=== PATIENT | male | born 1990 | race African-American/Black ===

== ENCOUNTER 2019-04-27 03:24 | Inpatient (IN) | payer BC ==
[2019-04-27] VITALS (7 sets, daily range): BP systolic 126–156; BP diastolic 68–82
[~2019-04-27] VITALS: Ht 175.3 cm; Wt 62.1 kg
[2019-04-27] MEDS ORDERED: ONDANSETRON HCL 4MG/2ML INJ IV STA (03:49)
[2019-04-27] MEDS ORDERED: ACETAMINOPHEN 325MG TABLET PO STA (03:49)
[2019-04-27] MEDS ORDERED: PIPERACILLIN/TAZ 3.375G PREMIX 50 ML IV ONE (04:00)
[2019-04-27] MEDS ORDERED: VANCOMYCIN 1 G PREMIX 200 ML IV ONE (04:00)
[2019-04-27] MEDS ORDERED: SODIUM CHLORIDE 0.9% 1000ML BAG (SEPSIS BOLUS) IV ONE (04:00)
[2019-04-27 04:16] LABS: BG BASE EXCESS -2.2 mmol/L (-2.0-2.0); BG CARBOXYHEMOGLOBIN 2.9 % (0.5-1.5); BG DEOXYHEMOGLOBIN 4.1 % (0.0-5.0); BG FRACTION INSPIRED OXYGEN 36; BG HCO3 ACT 19.9 mmol/L (22.0-26.0); BG METHEMOGLOBIN 0.3 % (0.0-1.5); BG OXYGEN SATURATION 95.8 % (92.0-98.5); BG OXYHEMOGLOBIN 92.7 % (94.0-97.0); BG PCO2 26.7 mmHg (35.0-45.0); BG SAMPLE SITE RIGHT RADIAL; BG TOTAL HEMOGLOBIN 12.1 g/dL (12.0-18.0); BG VENT MODE NASAL CANNULA
[2019-04-27 04:23] LABS: HEMATOCRIT. 34.6 % (42.0-52.0); HEMOGLOBIN. 12.1 g/dL (14.0-18.0); MEAN CORPUSCULAR HEMOGLOBIN 24.4 pg (28.0-32.0); MEAN PLATELET VOLUME 9.7 fl (7.4-10.4); PLATELET 165 x1000/uL (130-400); RED BLOOD CELL COUNT 4.95 mill/uL (4.7-6.1); RED CELL DISTRIBUTION WIDTH 17.4 % (11.6-14.6)
[2019-04-27 04:26] LABS: CHLORIDE 102 mEq/L (98-107)
[2019-04-27 04:30] LABS: ETHANOL BLOOD < 10 mg/dL
[2019-04-27 04:41] LABS: INR 1.3
[2019-04-27 05:12] LABS: NUCLEATED RED BLOOD CELLS 1 /100 WBC
[2019-04-27 05:16] LABS: PLATELET ESTIMATE NORMAL
[2019-04-27 05:47] LABS: CLARITY URINE CLOUDY (CLEAR); COLOR URINE DARK YELLOW (YELLOW); KETONES URINE NEGATIVE (NEGATIVE); LEUKOCYTE ESTERASE URINE 2+ (NEGATIVE); NITRITE URINE POSITIVE (NEGATIVE); OCCULT BLOOD URINE TRACE (NEGATIVE); PH URINE 5.5 (4.5-8.0); PROTEIN URINE TRACE (NEGATIVE); SPECIFIC GRAVITY URINE 1.012 (1.005-1.030)
[2019-04-27 06:11] LABS: *BARBITURATES SCREEN URINE NEGATIVE (NEGATIVE); *BENZODIAZEPINES SCREEN URINE NEGATIVE (NEGATIVE); *COCAINE SCREEN URINE NEGATIVE (NEGATIVE)
[2019-04-27 06:12] LABS: METHADONE URINE SCREEN NEGATIVE (NEGATIVE); OPIATES URINE SCREEN PRESUMTIVE POSITIVE (NEGATIVE); PHENCYCLIDINE URINE SCREEN NEGATIVE (NEGATIVE)
[2019-04-27 06:13] LABS: *AMPHETAMINES SCREEN URINE NEGATIVE (NEGATIVE); CANNABINOID URINE SCREEN NEGATIVE (NEGATIVE)
[2019-04-27] MEDS ORDERED: IOHEXOL-300 100 ML BOTTLE ONE (07:20)
[2019-04-27] MEDS ORDERED: PIPERACILLIN/TAZOBACTAM 3.375 G in DEXT 5% WATER 100 ML IV SCH (08:45)
[2019-04-27] MEDS: SODIUM CHLORIDE 0.9% 1,000 ML IV SCH ×2 (08:45→18:00)
[2019-04-27] MEDS ORDERED: PRED10TA PO (11:58)
[2019-04-27] MEDS: KETOROLAC 30MG/ML VIAL IV PRN ×2 (12:33→22:01)
[2019-04-27] MEDS: ACETAMINOPHEN 325MG TABLET PO PRN (13:54)
[2019-04-27 14:26] LABS: HEPATITIS A AB IGM NEGATIVE (NEGATIVE)
[2019-04-27] MEDS: PIPERACILLIN/TAZOBACTAM 3.375 G in DEXT 5% WATER 100 ML IV SCH ×2 (15:09→21:57)
[2019-04-27] MEDS: VANCOMYCIN 1250MG in DEXTROSE 5% WATER 250ML IV SCH ×2 (16:12→23:35)
[2019-04-27] MEDS: IPRATROPIUM BROMIDE (0.02%) 0.5MG/2.5ML NEB HHN SCH ×2 (16:31→21:43)
[2019-04-27] MEDS: HYDROCODONE/ACETAMINOPHEN 5/325MG TABLET PO PRN (23:36)
[2019-04-28] VITALS (13 sets, daily range): BP systolic 109–140; BP diastolic 64–86
[2019-04-28] MEDS: IPRATROPIUM BROMIDE (0.02%) 0.5MG/2.5ML NEB HHN SCH ×4 (02:10→20:24)
[2019-04-28] MEDS: PIPERACILLIN/TAZOBACTAM 3.375 G in DEXT 5% WATER 100 ML IV SCH ×4 (02:12→20:58)
[2019-04-28] MEDS: HYDROCODONE/ACETAMINOPHEN 5/325MG TABLET PO PRN ×3 (03:28→15:40)
[2019-04-28] MEDS: SODIUM CHLORIDE 0.9% 1,000 ML IV SCH ×3 (05:04→20:58)
[2019-04-28 05:55] LABS: CHLORIDE 109 mEq/L (98-107)
[2019-04-28 06:06] LABS: VANCOMYCIN TROUGH 19.7 ug/mL (5.0-10.0)
[2019-04-28] MEDS: VANCOMYCIN 1250MG in DEXTROSE 5% WATER 250ML IV SCH ×3 (06:18→22:16)
[2019-04-28] MEDS: KETOROLAC 30MG/ML VIAL IV PRN (06:19)
[2019-04-28 06:35] LABS: HEMATOCRIT. 29.8 % (42.0-52.0); MEAN CORPUSCULAR HEMOGLOBIN 23.6 pg (28.0-32.0); MEAN CORPUSCULAR VOLUME 70.4 fL (80.0-94.0); MEAN PLATELET VOLUME 10.6 fl (7.4-10.4); PLATELET 82 x1000/uL (130-400); RED BLOOD CELL COUNT 4.24 mill/uL (4.7-6.1); RED CELL DISTRIBUTION WIDTH 16.9 % (11.6-14.6)
[2019-04-28 12:29] LABS: CLARITY URINE CLOUDY (CLEAR); COLOR URINE DARK YELLOW (YELLOW); KETONES URINE NEGATIVE (NEGATIVE); LEUKOCYTE ESTERASE URINE 1+ (NEGATIVE); NITRITE URINE POSITIVE (NEGATIVE); OCCULT BLOOD URINE NEGATIVE (NEGATIVE); PH URINE 5.5 (4.5-8.0); PROTEIN URINE TRACE (NEGATIVE); SPECIFIC GRAVITY URINE 1.018 (1.005-1.030)
[2019-04-28] MEDS: MORPHINE SULFATE 2 MG/ML CPJ (NOT FOR IM USE) IV PRN ×3 (13:46→22:24)
[2019-04-28] MEDS: IPRATROPIUM BROMIDE (0.02%) 0.5MG/2.5ML NEB HHN PRN (16:46)
[2019-04-28 18:54] LABS: BG BASE EXCESS -1.4 mmol/L (-2.0-2.0); BG BILEVEL POS AIRWAY PRESSURE 15/5; BG CARBOXYHEMOGLOBIN 2.9 % (0.5-1.5); BG FRACTION INSPIRED OXYGEN 50; BG HCO3 ACT 23.4 mmol/L (22.0-26.0); BG METHEMOGLOBIN 0.1 % (0.0-1.5); BG OXYGEN SATURATION 95.9 % (92.0-98.5); BG PCO2 39.3 mmHg (35.0-45.0); BG PH 7.392 (7.350-7.450); BG PO2 86.4 mmHg (75.0-100.0); BG SAMPLE SITE RIGHT RADIAL; BG TOTAL HEMOGLOBIN 10.1 g/dL (12.0-18.0); BG VENT MODE MASK - BIPAP; BG VENT RATE 16 set
[2019-04-28 19:14] LABS: NUCLEATED RED BLOOD CELLS 4 /100 WBC; PLATELET ESTIMATE DECREASED
[2019-04-29] VITALS (17 sets, daily range): BP systolic 121–154; BP diastolic 63–89
[2019-04-29] MEDS ORDERED: AMIKACIN 500MG in SODIUM CHLORIDE 0.9% 100ML IV SCH ×2
[2019-04-29] MEDS: MORPHINE SULFATE 2 MG/ML CPJ (NOT FOR IM USE) IV PRN ×4 (01:28→12:17)
[2019-04-29] MEDS: IPRATROPIUM BROMIDE (0.02%) 0.5MG/2.5ML NEB HHN SCH ×4 (02:18→20:48)
[2019-04-29] MEDS: PIPERACILLIN/TAZOBACTAM 3.375 G in DEXT 5% WATER 100 ML IV SCH ×2 (03:12→08:41)
[2019-04-29 03:57] LABS: BG BASE EXCESS -0.5 mmol/L (-2.0-2.0); BG BILEVEL POS AIRWAY PRESSURE 15/5; BG CARBOXYHEMOGLOBIN 2.5 % (0.5-1.5); BG DEOXYHEMOGLOBIN 2.1 % (0.0-5.0); BG FRACTION INSPIRED OXYGEN 50; BG HCO3 ACT 24.9 mmol/L (22.0-26.0); BG METHEMOGLOBIN 0.2 % (0.0-1.5); BG OXYGEN SATURATION 97.8 % (92.0-98.5); BG OXYHEMOGLOBIN 95.2 % (94.0-97.0); BG PCO2 44.1 mmHg (35.0-45.0); BG PH 7.369 (7.350-7.450); BG PO2 110.3 mmHg (75.0-100.0); BG SAMPLE SITE RIGHT RADIAL; BG TOTAL HEMOGLOBIN 8.7 g/dL (12.0-18.0); BG VENT MODE MASK - BIPAP
[2019-04-29] MEDS: VANCOMYCIN 1250MG in DEXTROSE 5% WATER 250ML IV SCH ×4 (06:15→20:53)
[2019-04-29 07:32] LABS: HEMATOCRIT. 24.7 % (42.0-52.0); HEMOGLOBIN. 8.4 g/dL (14.0-18.0); MEAN CORPUSCULAR HEMOGLOBIN 23.8 pg (28.0-32.0); MEAN CORPUSCULAR VOLUME 70.1 fL (80.0-94.0); MEAN PLATELET VOLUME 9.4 fl (7.4-10.4); PLATELET 53 x1000/uL (130-400); RED BLOOD CELL COUNT 3.53 mill/uL (4.7-6.1); RED CELL DISTRIBUTION WIDTH 17.6 % (11.6-14.6)
[2019-04-29 07:47] LABS: CHLORIDE 109 mEq/L (98-107)
[2019-04-29 11:16] LABS: NUCLEATED RED BLOOD CELLS 20 /100 WBC; PLATELET ESTIMATE DECREASED
[2019-04-29 12:14] LABS: HEPATITIS B SURFACE ANTIGEN NEGATIVE
[2019-04-29] MEDS: MORPHINE SULFATE 4 MG/ML CPJ (NOT FOR IM USE) IV PRN ×3 (14:05→20:57)
[2019-04-29] MEDS: SODIUM CHLORIDE 0.9% 1,000 ML IV SCH ×2 (14:24→21:05)
[2019-04-29] MEDS: CEFTRIAXONE 2 G in DEXT 5% WATER 100 ML IV SCH (15:49)
[2019-04-29 16:15] LABS: BG BASE EXCESS -1.3 mmol/L (-2.0-2.0); BG CARBOXYHEMOGLOBIN 3.5 % (0.5-1.5); BG DEOXYHEMOGLOBIN 1.3 % (0.0-5.0); BG FRACTION INSPIRED OXYGEN 50; BG HCO3 ACT 23.6 mmol/L (22.0-26.0); BG METHEMOGLOBIN 0.3 % (0.0-1.5); BG OXYGEN SATURATION 98.6 % (92.0-98.5); BG OXYHEMOGLOBIN 94.9 % (94.0-97.0); BG PCO2 39.8 mmHg (35.0-45.0); BG PO2 137.3 mmHg (75.0-100.0); BG SAMPLE SITE RIGHT RADIAL; BG VENT MODE MASK - BIPAP; BG VENT RATE 16 set
[2019-04-29] MEDS: PHENOL/SODIUM PHENOLATE 1.4% SRPAY 177ML MM PRN (16:45)
[2019-04-29] MEDS: ACETAMINOPHEN 325MG TABLET PO PRN (16:45)
[2019-04-29 23:30] LABS: BG BASE EXCESS -1.1 mmol/L (-2.0-2.0); BG CARBOXYHEMOGLOBIN 4.1 % (0.5-1.5); BG DEOXYHEMOGLOBIN 1.2 % (0.0-5.0); BG FRACTION INSPIRED OXYGEN 50; BG METHEMOGLOBIN 0.4 % (0.0-1.5); BG OXYGEN SATURATION 98.7 % (92.0-98.5); BG OXYHEMOGLOBIN 94.3 % (94.0-97.0); BG PCO2 42.2 mmHg (35.0-45.0); BG PH 7.373 (7.350-7.450); BG PO2 122.6 mmHg (75.0-100.0); BG SAMPLE SITE RIGHT RADIAL; BG TOTAL HEMOGLOBIN 7.1 g/dL (12.0-18.0); BG VENT MODE MASK - BIPAP; BG VENT RATE 16 set
[2019-04-30] VITALS (34 sets, daily range): BP systolic 95–187; BP diastolic 45–108
[2019-04-30] MEDS: MORPHINE SULFATE 4 MG/ML CPJ (NOT FOR IM USE) IV PRN ×3 (01:02→10:37)
[2019-04-30] MEDS: IPRATROPIUM BROMIDE (0.02%) 0.5MG/2.5ML NEB HHN SCH ×4 (02:09→20:37)
[2019-04-30 05:11] LABS: HIV SCREEN 4G Non Reactive (Non Reactive)
[2019-04-30] MEDS: VANCOMYCIN 1250MG in DEXTROSE 5% WATER 250ML IV SCH ×3 (05:29→22:15)
[2019-04-30] MEDS: SODIUM CHLORIDE 0.9% 1,000 ML IV SCH ×3 (05:31→20:50)
[2019-04-30 06:24] LABS: CHLORIDE 109 mEq/L (98-107); FOLIC ACID (FOLATE) SERUM 10.8 ng/mL (>5.38)
[2019-04-30 06:31] LABS: PHOSPHORUS 2.6 mg/dL (2.5-4.9)
[2019-04-30 06:46] LABS: HEMATOCRIT. 21.5 % (42.0-52.0); HEMOGLOBIN. 7.4 g/dL (14.0-18.0); MEAN CORPUSCULAR VOLUME 69.5 fL (80.0-94.0); RED BLOOD CELL COUNT 3.09 mill/uL (4.7-6.1); RED CELL DISTRIBUTION WIDTH 18.4 % (11.6-14.6)
[2019-04-30 09:28] LABS: BG BASE EXCESS 1.1 mmol/L (-2.0-2.0); BG CARBOXYHEMOGLOBIN 3.6 % (0.5-1.5); BG DEOXYHEMOGLOBIN 1.1 % (0.0-5.0); BG HCO3 ACT 26.8 mmol/L (22.0-26.0); BG METHEMOGLOBIN 0.4 % (0.0-1.5); BG OXYGEN SATURATION 98.9 % (92.0-98.5); BG OXYHEMOGLOBIN 94.9 % (94.0-97.0); BG PCO2 48.7 mmHg (35.0-45.0); BG PH 7.358 (7.350-7.450); BG PO2 136.1 mmHg (75.0-100.0); BG SAMPLE SITE RIGHT RADIAL; BG TOTAL HEMOGLOBIN 7.2 g/dL (12.0-18.0); BG VENT MODE MASK - BIPAP; BG VENT RATE 16 set
[2019-04-30 10:20] LABS: PLATELET 51 x1000/uL (130-400)
[2019-04-30 10:25] LABS: NUCLEATED RED BLOOD CELLS 32 /100 WBC
[2019-04-30 10:26] LABS: PLATELET ESTIMATE DECREASED
[2019-04-30] MEDS: KETOROLAC 30MG/ML VIAL IV PRN (11:33)
[2019-04-30] MEDS: HYDROMORPHONE HCL/PF 2MG/ML CPJ IV PRN ×2 (12:56→17:42)
[2019-04-30] MEDS: DIPHENHYDRAMINE 50MG/ML VIAL IV PRN (13:53)
[2019-04-30] MEDS: CEFTRIAXONE 2 G in DEXT 5% WATER 100 ML IV SCH (16:02)
[2019-04-30 17:11] LABS: ANTI-NUCLEAR ANTIBODIES DIRECT Negative (Negative)
[2019-04-30] MEDS ORDERED: SUCCINYLCHOLINE CHLORIDE 200MG/10ML IV ONE (17:25)
[2019-04-30] MEDS ORDERED: ETOMIDATE 2MG/ML 10ML VIAL IV ONE (17:25)
[2019-04-30 17:43] LABS: CREATINE KINASE 75 IU/L (39-308)
[2019-04-30 18:13] LABS: BG BASE EXCESS -0.4 mmol/L (-2.0-2.0); BG CARBOXYHEMOGLOBIN 3.4 % (0.5-1.5); BG DEOXYHEMOGLOBIN 0.2 % (0.0-5.0); BG HCO3 ACT 25.4 mmol/L (22.0-26.0); BG METHEMOGLOBIN 0.7 % (0.0-1.5); BG OXYGEN SATURATION 99.8 % (92.0-98.5); BG OXYHEMOGLOBIN 95.7 % (94.0-97.0); BG PCO2 48.1 mmHg (35.0-45.0); BG PH 7.341 (7.350-7.450); BG PO2 284.6 mmHg (75.0-100.0); BG SAMPLE SITE RIGHT RADIAL; BG TOTAL HEMOGLOBIN 7.7 g/dL (12.0-18.0); BG VENT MODE MASK - BIPAP; BG VENT RATE 16 set
[2019-04-30] MEDS ORDERED: PROPOFOL 10MG/ML 100ML 100 ML IV PRN (18:45)
[2019-04-30 19:12] LABS: BG BASE EXCESS -0.7 mmol/L (-2.0-2.0); BG CARBOXYHEMOGLOBIN 3.8 % (0.5-1.5); BG FRACTION INSPIRED OXYGEN 100; BG HCO3 ACT 24.1 mmol/L (22.0-26.0); BG METHEMOGLOBIN 0.8 % (0.0-1.5); BG OXYHEMOGLOBIN 94.4 % (94.0-97.0); BG PH 7.398 (7.350-7.450); BG PO2 149.6 mmHg (75.0-100.0); BG SAMPLE SITE RIGHT RADIAL; BG TIDAL VOLUME(mL) 500 mL; BG TOTAL HEMOGLOBIN 6.5 g/dL (12.0-18.0); BG VENT MODE VENT - A/C; BG VENT RATE 12 set
[2019-04-30] MEDS: MORPHINE SULFATE 2 MG/ML CPJ (NOT FOR IM USE) IV PRN (19:49)
[2019-04-30] MEDS: FENTANYL CITRATE/PF 500 MCG in SODIUM CHLORIDE 0.9% 40 ML IV PRN (20:22)
[2019-04-30] MEDS: ACETAMINOPHEN 325MG TABLET PO PRN (20:31)
[2019-04-30] MEDS: PROPOFOL 10MG/ML 100ML 100 ML IV PRN ×2 (20:44→23:59)
[2019-05-01] VITALS (100 sets, daily range): BP systolic 96–129; BP diastolic 45–77
[2019-05-01] MEDS: IPRATROPIUM BROMIDE (0.02%) 0.5MG/2.5ML NEB HHN SCH ×4 (01:49→20:38)
[2019-05-01] MEDS: FENTANYL CITRATE/PF 500 MCG in SODIUM CHLORIDE 0.9% 40 ML IV PRN ×5 (02:14→23:36)
[2019-05-01] MEDS: PROPOFOL 10MG/ML 100ML 100 ML IV PRN ×2 (03:32→07:24)
[2019-05-01] MEDS: ACETAMINOPHEN 325MG TABLET PO PRN ×2 (04:42→15:16)
[2019-05-01] MEDS: VANCOMYCIN 1250MG in DEXTROSE 5% WATER 250ML IV SCH (05:09)
[2019-05-01 05:38] LABS: MEAN CORPUSCULAR HEMOGLOBIN 23.7 pg (28.0-32.0); MEAN CORPUSCULAR VOLUME 69.9 fL (80.0-94.0); RED BLOOD CELL COUNT 2.69 mill/uL (4.7-6.1); RED CELL DISTRIBUTION WIDTH 18.7 % (11.6-14.6)
[2019-05-01 05:42] LABS: CHLORIDE 108 mEq/L (98-107)
[2019-05-01 05:58] LABS: VANCOMYCIN TROUGH 26.5 ug/mL (5.0-10.0)
[2019-05-01 06:31] LABS: HEMOGLOBIN. 6.4 g/dL (14.0-18.0)
[2019-05-01 06:32] LABS: HEMATOCRIT. 18.8 % (42.0-52.0)
[2019-05-01 07:59] LABS: BG BASE EXCESS -0.8 mmol/L (-2.0-2.0); BG CARBOXYHEMOGLOBIN 2.7 % (0.5-1.5); BG DEOXYHEMOGLOBIN 3.1 % (0.0-5.0); BG FRACTION INSPIRED OXYGEN 100; BG HCO3 ACT 23.4 mmol/L (22.0-26.0); BG METHEMOGLOBIN 0.7 % (0.0-1.5); BG OXYGEN SATURATION 96.8 % (92.0-98.5); BG OXYHEMOGLOBIN 93.5 % (94.0-97.0); BG PCO2 35.5 mmHg (35.0-45.0); BG PH 7.437 (7.350-7.450); BG PO2 92.1 mmHg (75.0-100.0); BG SAMPLE SITE RIGHT RADIAL; BG TIDAL VOLUME(mL) 500 mL; BG TOTAL HEMOGLOBIN 5.2 g/dL (12.0-18.0); BG VENT MODE VENT - A/C; BG VENT RATE 12 set
[2019-05-01 09:46] LABS: NUCLEATED RED BLOOD CELLS 72 /100 WBC; PLATELET ESTIMATE DECREASED
[2019-05-01] MEDS: MIDAZOLAM HCL 100 MG in DEXT 5% WATER 80 ML IV PRN ×2 (09:55→20:29)
[2019-05-01] MEDS: SODIUM CHLORIDE 0.9% 1,000 ML IV SCH (12:45)
[2019-05-01 14:17] LABS: MEAN PLATELET VOLUME 10.9 fl (7.4-10.4); PLATELET 60 x1000/uL (130-400)
[2019-05-01] MEDS: CEFTRIAXONE 2 G in DEXTROSE 5% WATER 50 ML IV SCH (15:13)
[2019-05-01 15:14] LABS: ANTI-MYELOPEROXIDASE AB < 9.0 U/mL (0.0-9.0); ANTI-PROTEINASE 3 ABS < 3.5 U/mL (0.0-3.5)
[2019-05-01] MEDS ORDERED: LEVOFLOXACIN 750MG PREMIX 150 ML IV SCH (16:45)
[2019-05-01 16:50] LABS: HEMOGLOBIN 9.2 g/dL (14.0-18.0)
[2019-05-01] MEDS: VANCOMYCIN 1500MG in DEXTROSE 5% WATER 250ML IV SCH (18:24)
[2019-05-01] MEDS: LEVOFLOXACIN 750MG PREMIX 150 ML IV SCH (20:36)
[2019-05-02] VITALS (90 sets, daily range): BP systolic 92–147; BP diastolic 45–86
[2019-05-02] MEDS: SODIUM CHLORIDE 0.9% 1,000 ML IV SCH ×2 (00:17→09:34)
[2019-05-02] MEDS: IPRATROPIUM BROMIDE (0.02%) 0.5MG/2.5ML NEB HHN SCH ×4 (04:50→20:53)
[2019-05-02] MEDS: FENTANYL CITRATE/PF 500 MCG in SODIUM CHLORIDE 0.9% 40 ML IV PRN ×4 (05:24→22:03)
[2019-05-02] MEDS: VANCOMYCIN 1500MG in DEXTROSE 5% WATER 250ML IV SCH (05:28)
[2019-05-02 05:45] LABS: HEMATOCRIT. 27.9 % (42.0-52.0); HEMOGLOBIN. 9.3 g/dL (14.0-18.0); MEAN CORPUSCULAR HEMOGLOBIN 25.3 pg (28.0-32.0); MEAN CORPUSCULAR VOLUME 75.8 fL (80.0-94.0); RED BLOOD CELL COUNT 3.67 mill/uL (4.7-6.1); RED CELL DISTRIBUTION WIDTH 22.9 % (11.6-14.6)
[2019-05-02 06:17] LABS: CHLORIDE 116 mEq/L (98-107)
[2019-05-02 08:12] LABS: BG BASE EXCESS -3.8 mmol/L (-2.0-2.0); BG CARBOXYHEMOGLOBIN 0.7 % (0.5-1.5); BG DEOXYHEMOGLOBIN 0.9 % (0.0-5.0); BG FRACTION INSPIRED OXYGEN 100; BG METHEMOGLOBIN 0.3 % (0.0-1.5); BG OXYGEN SATURATION 99.1 % (92.0-98.5); BG OXYHEMOGLOBIN 98.1 % (94.0-97.0); BG PH 7.372 (7.350-7.450); BG PO2 159.7 mmHg (75.0-100.0); BG SAMPLE SITE RIGHT RADIAL; BG TIDAL VOLUME(mL) 500 mL; BG TOTAL HEMOGLOBIN 8.2 g/dL (12.0-18.0); BG VENT MODE VENT - A/C; BG VENT RATE 12 set
[2019-05-02 08:41] LABS: NUCLEATED RED BLOOD CELLS 60 /100 WBC
[2019-05-02 08:43] LABS: PLATELET ESTIMATE SLIGHTLY DECREASED
[2019-05-02 08:44] LABS: PLATELET 84 x1000/uL (130-400)
[2019-05-02] MEDS ORDERED: DIATR MEGLU/DIATRIZOATE SOLN 30ML PO SCH (09:00)
[2019-05-02] MEDS ORDERED: SODIUM CHLORIDE 0.9% 500 ML IV ONE (09:46)
[2019-05-02] MEDS: MIDAZOLAM HCL 100 MG in DEXT 5% WATER 80 ML IV PRN ×2 (11:48→23:35)
[2019-05-02] MEDS: IPRATROPIUM BROMIDE (0.02%) 0.5MG/2.5ML NEB HHN PRN ×2 (12:17→16:08)
[2019-05-02] MEDS: MORPHINE SULFATE 2 MG/ML CPJ (NOT FOR IM USE) IV PRN (13:07)
[2019-05-02 13:14] LABS: ATYPICAL P-ANCA <1:20 titer (Neg:<1:20); CYTOPLASMIC C-ANCA <1:20 titer (Neg:<1:20); PERINUCLEAR P-ANCA <1:20 titer (Neg:<1:20)
[2019-05-02] MEDS: ACETAMINOPHEN 325MG TABLET PO PRN (13:42)
[2019-05-02] MEDS ORDERED: BUSPIRONE HCL 10MG TABLET PO PRN (14:15)
[2019-05-02] MEDS: SODIUM CHLORIDE 0.45% 1,000 ML IV SCH (14:47)
[2019-05-02] MEDS ORDERED: MEPERIDINE HCL/PF 25MG/ML CPJ IV NR (15:00)
[2019-05-02] MEDS: CEFTRIAXONE 2 G in DEXTROSE 5% WATER 50 ML IV SCH (15:59)
[2019-05-02] MEDS: LEVOFLOXACIN 750MG PREMIX 150 ML IV SCH (20:19)
[2019-05-03] VITALS (82 sets, daily range): BP systolic 105–132; BP diastolic 49–77
[2019-05-03] MEDS: SODIUM CHLORIDE 0.45% 1,000 ML IV SCH (00:21)
[2019-05-03] MEDS: IPRATROPIUM BROMIDE (0.02%) 0.5MG/2.5ML NEB HHN SCH ×4 (02:20→21:00)
[2019-05-03] MEDS: FENTANYL CITRATE/PF 500 MCG in SODIUM CHLORIDE 0.9% 40 ML IV PRN ×4 (02:57→19:35)
[2019-05-03 05:42] LABS: HEMOGLOBIN. 8.4 g/dL (14.0-18.0); MEAN CORPUSCULAR HEMOGLOBIN 25.3 pg (28.0-32.0); MEAN CORPUSCULAR VOLUME 75.2 fL (80.0-94.0); RED BLOOD CELL COUNT 3.32 mill/uL (4.7-6.1); RED CELL DISTRIBUTION WIDTH 22.8 % (11.6-14.6)
[2019-05-03 05:48] LABS: INR 1.6
[2019-05-03 05:51] LABS: CHLORIDE 121 mEq/L (98-107)
[2019-05-03 06:04] LABS: CREATINE KINASE 135 IU/L (39-308)
[2019-05-03 06:08] LABS: CREATINE KINASE MB FRACTION < 1.0 ng/mL (0.5-3.6)
[2019-05-03 07:54] LABS: BG BASE EXCESS -5.5 mmol/L (-2.0-2.0); BG CARBOXYHEMOGLOBIN 1.4 % (0.5-1.5); BG DEOXYHEMOGLOBIN 5.9 % (0.0-5.0); BG FRACTION INSPIRED OXYGEN 50; BG HCO3 ACT 19.2 mmol/L (22.0-26.0); BG METHEMOGLOBIN 0.4 % (0.0-1.5); BG OXYHEMOGLOBIN 92.3 % (94.0-97.0); BG PCO2 33.9 mmHg (35.0-45.0); BG PH 7.371 (7.350-7.450); BG SAMPLE SITE RIGHT RADIAL; BG TIDAL VOLUME(mL) 500 mL; BG TOTAL HEMOGLOBIN 8.2 g/dL (12.0-18.0); BG VENT MODE VENT - A/C; BG VENT RATE 12 set
[2019-05-03] MEDS ORDERED: LIDOCAINE HCL 1% 20ML VIAL (Pyxis) INJ ONE (07:55)
[2019-05-03 08:19] LABS: NUCLEATED RED BLOOD CELLS 38 /100 WBC
[2019-05-03 08:21] LABS: PLATELET ESTIMATE SLIGHTLY DECREASED
[2019-05-03 08:26] LABS: MEAN PLATELET VOLUME 12.5 fl (7.4-10.4); PLATELET 103 x1000/uL (130-400)
[2019-05-03] MEDS: MIDAZOLAM HCL 100 MG in DEXT 5% WATER 80 ML IV PRN ×2 (09:23→17:49)
[2019-05-03 10:34] LABS: CREATINE KINASE 110 IU/L (39-308)
[2019-05-03] MEDS: DIPHENHYDRAMINE 50MG/ML VIAL IV PRN ×2 (11:19→16:15)
[2019-05-03] MEDS: DEXTROSE 5% WATER 1,000 ML IV SCH ×2 (11:19→20:41)
[2019-05-03] MEDS ORDERED: DIATR MEGLU/DIATRIZOATE SOLN 30ML PO NR (12:00)
[2019-05-03] MEDS: ACETYLCYSTEINE 100MG/ML 10% VIAL 4ML INH SCH (13:39)
[2019-05-03] MEDS: CEFTRIAXONE 2 G in DEXTROSE 5% WATER 50 ML IV SCH (16:14)
[2019-05-03] MEDS: MORPHINE SULFATE 2 MG/ML CPJ (NOT FOR IM USE) IV PRN (16:16)
[2019-05-03] MEDS: ACETAMINOPHEN 325MG TABLET PO PRN (17:33)
[2019-05-03] MEDS: LEVOFLOXACIN 750MG PREMIX 150 ML IV SCH (20:41)
[2019-05-04] VITALS (95 sets, daily range): BP systolic 105–140; BP diastolic 56–81
[2019-05-04] MEDS: FENTANYL CITRATE/PF 500 MCG in SODIUM CHLORIDE 0.9% 40 ML IV PRN ×5 (00:28→20:54)
[2019-05-04] MEDS: IPRATROPIUM BROMIDE (0.02%) 0.5MG/2.5ML NEB HHN PRN (00:54)
[2019-05-04] MEDS: ACETYLCYSTEINE 100MG/ML 10% VIAL 4ML INH SCH ×3 (00:54→15:52)
[2019-05-04] MEDS: IPRATROPIUM BROMIDE (0.02%) 0.5MG/2.5ML NEB HHN SCH ×4 (02:00→20:02)
[2019-05-04 05:22] LABS: HEMATOCRIT. 24.5 % (42.0-52.0); MEAN CORPUSCULAR HEMOGLOBIN 24.8 pg (28.0-32.0); MEAN CORPUSCULAR VOLUME 75.7 fL (80.0-94.0); MEAN PLATELET VOLUME 11.2 fl (7.4-10.4); PLATELET 142 x1000/uL (130-400); RED BLOOD CELL COUNT 3.24 mill/uL (4.7-6.1); RED CELL DISTRIBUTION WIDTH 24.6 % (11.6-14.6)
[2019-05-04] MEDS: MIDAZOLAM HCL 100 MG in DEXT 5% WATER 80 ML IV PRN ×2 (05:24→16:03)
[2019-05-04 05:36] LABS: INR 1.8
[2019-05-04 07:34] LABS: NUCLEATED RED BLOOD CELLS 44 /100 WBC
[2019-05-04 07:35] LABS: PLATELET ESTIMATE NORMAL
[2019-05-04 08:26] LABS: BG BASE EXCESS -6.5 mmol/L (-2.0-2.0); BG CARBOXYHEMOGLOBIN 0.5 % (0.5-1.5); BG DEOXYHEMOGLOBIN 3.5 % (0.0-5.0); BG FRACTION INSPIRED OXYGEN 50; BG HCO3 ACT 18.1 mmol/L (22.0-26.0); BG METHEMOGLOBIN 0.6 % (0.0-1.5); BG OXYGEN SATURATION 96.5 % (92.0-98.5); BG OXYHEMOGLOBIN 95.4 % (94.0-97.0); BG PCO2 32.7 mmHg (35.0-45.0); BG PH 7.362 (7.350-7.450); BG PO2 100.9 mmHg (75.0-100.0); BG SAMPLE SITE RIGHT RADIAL; BG TIDAL VOLUME(mL) 500 mL; BG TOTAL HEMOGLOBIN 8.9 g/dL (12.0-18.0); BG VENT MODE VENT - A/C; BG VENT RATE 12 set
[2019-05-04] MEDS: DIPHENHYDRAMINE 50MG/ML VIAL IV PRN (10:10)
[2019-05-04] MEDS ORDERED: BISACODYL 10MG SUPP PR NR (13:30)
[2019-05-04] MEDS: CEFTRIAXONE 2 G in DEXTROSE 5% WATER 50 ML IV SCH (17:10)
[2019-05-04 17:45] LABS: INR 1.8; PROTHROMBIN TIME 18.1 sec (9.6-11.0)
[2019-05-04] MEDS: DEXTROSE 5% WATER 1,000 ML IV SCH (20:20)
[2019-05-04] MEDS: LEVOFLOXACIN 750MG PREMIX 150 ML IV SCH (20:20)
[2019-05-05] VITALS (109 sets, daily range): BP systolic 107–134; BP diastolic 49–75
[2019-05-05] MEDS: IPRATROPIUM BROMIDE (0.02%) 0.5MG/2.5ML NEB HHN SCH ×4 (00:11→20:28)
[2019-05-05] MEDS: ACETYLCYSTEINE 100MG/ML 10% VIAL 4ML INH SCH ×3 (00:11→15:24)
[2019-05-05] MEDS: MIDAZOLAM HCL 100 MG in DEXT 5% WATER 80 ML IV PRN ×3 (01:01→22:24)
[2019-05-05] MEDS: FENTANYL CITRATE/PF 500 MCG in SODIUM CHLORIDE 0.9% 40 ML IV PRN ×5 (02:27→23:57)
[2019-05-05 02:41] LABS: INR 1.8; PROTHROMBIN TIME 18.2 sec (9.6-11.0)
[2019-05-05 08:02] LABS: MEAN CORPUSCULAR HEMOGLOBIN 24.6 pg (28.0-32.0); PLATELET 280 x1000/uL (130-400); RED BLOOD CELL COUNT 2.71 mill/uL (4.7-6.1); RED CELL DISTRIBUTION WIDTH 25.5 % (11.6-14.6)
[2019-05-05 08:10] LABS: HEMOGLOBIN. 6.7 g/dL (14.0-18.0)
[2019-05-05 08:39] LABS: BG BASE EXCESS -4.1 mmol/L (-2.0-2.0); BG CARBOXYHEMOGLOBIN 1.5 % (0.5-1.5); BG DEOXYHEMOGLOBIN 1.4 % (0.0-5.0); BG FRACTION INSPIRED OXYGEN 50; BG HCO3 ACT 20.8 mmol/L (22.0-26.0); BG METHEMOGLOBIN 0.3 % (0.0-1.5); BG OXYGEN SATURATION 98.6 % (92.0-98.5); BG OXYHEMOGLOBIN 96.8 % (94.0-97.0); BG PCO2 36.4 mmHg (35.0-45.0); BG PH 7.374 (7.350-7.450); BG PO2 139.9 mmHg (75.0-100.0); BG SAMPLE SITE RIGHT RADIAL; BG TIDAL VOLUME(mL) 500 mL; BG TOTAL HEMOGLOBIN 6.9 g/dL (12.0-18.0); BG VENT MODE VENT - A/C; BG VENT RATE 12 set
[2019-05-05 09:07] LABS: NUCLEATED RED BLOOD CELLS 20 /100 WBC
[2019-05-05 09:10] LABS: PLATELET ESTIMATE NORMAL
[2019-05-05] MEDS ORDERED: PHYTONADIONE 10MG/ML AMP SUBCUT NR (09:45)
[2019-05-05 10:22] LABS: INR 1.7; PROTHROMBIN TIME 17.1 sec (9.6-11.0)
[2019-05-05] MEDS ORDERED: LIDOCAINE HCL 1% 20ML VIAL (Pyxis) INJ ONE (10:23)
[2019-05-05] MEDS ORDERED: SODIUM BICARBONATE 4% (2.4MEQ) 5ML VIAL IV ONE (10:23)
[2019-05-05] MEDS ORDERED: SODIUM POLYSTYRENE SULFONATE 15 G/60 ML BOT PR NR (10:30)
[2019-05-05] MEDS: DEXTROSE 5% WATER 1,000 ML IV SCH ×2 (13:05)
[2019-05-05] MEDS: CEFTRIAXONE 2 G in DEXTROSE 5% WATER 50 ML IV SCH (16:27)
[2019-05-05] MEDS: LEVOFLOXACIN 500MG PREMIX 100 ML IV SCH (18:11)
[2019-05-05 21:44] LABS: HEMATOCRIT 26.4 % (42.0-52.0); HEMOGLOBIN 8.9 g/dL (14.0-18.0)
[2019-05-06] VITALS (95 sets, daily range): BP systolic 99–156; BP diastolic 53–114
[2019-05-06] MEDS: IPRATROPIUM BROMIDE (0.02%) 0.5MG/2.5ML NEB HHN SCH ×4 (01:58→20:27)
[2019-05-06] MEDS: ACETYLCYSTEINE 100MG/ML 10% VIAL 4ML INH SCH ×3 (01:59→13:32)
[2019-05-06] MEDS: DEXTROSE 5% WATER 1,000 ML IV SCH ×2 (03:12→16:23)
[2019-05-06] MEDS: FENTANYL CITRATE/PF 500 MCG in SODIUM CHLORIDE 0.9% 40 ML IV PRN ×5 (04:47→21:48)
[2019-05-06 04:50] LABS: HEMATOCRIT. 28.2 % (42.0-52.0); HEMOGLOBIN. 9.4 g/dL (14.0-18.0); MEAN CORPUSCULAR HEMOGLOBIN 25.7 pg (28.0-32.0); MEAN CORPUSCULAR VOLUME 76.8 fL (80.0-94.0); MEAN PLATELET VOLUME 10.8 fl (7.4-10.4); PLATELET 271 x1000/uL (130-400); RED BLOOD CELL COUNT 3.67 mill/uL (4.7-6.1); RED CELL DISTRIBUTION WIDTH 23.8 % (11.6-14.6)
[2019-05-06 04:57] LABS: INR 1.3
[2019-05-06 07:35] LABS: NUCLEATED RED BLOOD CELLS 16 /100 WBC
[2019-05-06 07:36] LABS: PLATELET ESTIMATE NORMAL
[2019-05-06] MEDS: MIDAZOLAM HCL 100 MG in DEXT 5% WATER 80 ML IV PRN ×2 (08:42→18:47)
[2019-05-06 12:36] LABS: BG BASE EXCESS -2.9 mmol/L (-2.0-2.0); BG CARBOXYHEMOGLOBIN 0.3 % (0.5-1.5); BG DEOXYHEMOGLOBIN 8.1 % (0.0-5.0); BG FRACTION INSPIRED OXYGEN 50; BG HCO3 ACT 22.1 mmol/L (22.0-26.0); BG METHEMOGLOBIN 0.3 % (0.0-1.5); BG OXYGEN SATURATION 91.9 % (92.0-98.5); BG OXYHEMOGLOBIN 91.3 % (94.0-97.0); BG PCO2 39.1 mmHg (35.0-45.0); BG PO2 66.4 mmHg (75.0-100.0); BG SAMPLE SITE RIGHT RADIAL; BG TIDAL VOLUME(mL) 500 mL; BG TOTAL HEMOGLOBIN 10.2 g/dL (12.0-18.0); BG VENT MODE VENT - A/C; BG VENT RATE 12 set
[2019-05-06] MEDS ORDERED: MIDAZOLAM HCL 50 MG in DEXTROSE 5% WATER 40 ML IV PRN (14:00)
[2019-05-06] MEDS: CEFTRIAXONE 2 G in DEXTROSE 5% WATER 50 ML IV SCH (14:22)
[2019-05-06] MEDS: LEVOFLOXACIN 500MG PREMIX 100 ML IV SCH (17:37)
[2019-05-06 18:05] LABS: BG BASE EXCESS -0.4 mmol/L (-2.0-2.0); BG CARBOXYHEMOGLOBIN 0.3 % (0.5-1.5); BG DEOXYHEMOGLOBIN 1.3 % (0.0-5.0); BG FRACTION INSPIRED OXYGEN 60; BG HCO3 ACT 24.6 mmol/L (22.0-26.0); BG METHEMOGLOBIN 0.3 % (0.0-1.5); BG OXYGEN SATURATION 98.7 % (92.0-98.5); BG OXYHEMOGLOBIN 98.1 % (94.0-97.0); BG PCO2 41.9 mmHg (35.0-45.0); BG PH 7.387 (7.350-7.450); BG PO2 190.6 mmHg (75.0-100.0); BG SAMPLE SITE LEFT RADIAL; BG TIDAL VOLUME(mL) 550 mL; BG TOTAL HEMOGLOBIN 11.4 g/dL (12.0-18.0); BG VENT MODE VENT - A/C; BG VENT RATE 12 set
[2019-05-06] MEDS ORDERED: HALOPERIDOL LACTATE 5MG/ML VIAL IM NR (18:15)
[2019-05-06] MEDS ORDERED: BENZTROPINE MESYLATE 1MG/1ML 2ML AMP IM NR (18:30)
[2019-05-07] VITALS (91 sets, daily range): BP systolic 99–147; BP diastolic 51–79
[2019-05-07] MEDS: ACETAMINOPHEN 325MG TABLET PO PRN ×2 (00:08→09:41)
[2019-05-07] MEDS: DEXTROSE 5% WATER 1,000 ML IV SCH ×3 (01:07→20:41)
[2019-05-07] MEDS: IPRATROPIUM BROMIDE (0.02%) 0.5MG/2.5ML NEB HHN SCH ×4 (01:11→20:56)
[2019-05-07] MEDS: ACETYLCYSTEINE 100MG/ML 10% VIAL 4ML INH SCH ×4 (01:12→20:55)
[2019-05-07] MEDS: FENTANYL CITRATE/PF 500 MCG in SODIUM CHLORIDE 0.9% 40 ML IV PRN ×4 (03:09→20:11)
[2019-05-07] MEDS: MIDAZOLAM HCL 100 MG in DEXT 5% WATER 80 ML IV PRN ×2 (05:36→16:21)
[2019-05-07 06:13] LABS: HEMATOCRIT. 28.1 % (42.0-52.0); HEMOGLOBIN. 9.3 g/dL (14.0-18.0); MEAN CORPUSCULAR HEMOGLOBIN 25.4 pg (28.0-32.0); MEAN CORPUSCULAR VOLUME 77.1 fL (80.0-94.0); MEAN PLATELET VOLUME 11.2 fl (7.4-10.4); PLATELET 353 x1000/uL (130-400); RED BLOOD CELL COUNT 3.64 mill/uL (4.7-6.1); RED CELL DISTRIBUTION WIDTH 24.8 % (11.6-14.6)
[2019-05-07 06:21] LABS: INR 1.3; PROTHROMBIN TIME 12.7 sec (9.6-11.0)
[2019-05-07 06:27] LABS: PHOSPHORUS 3.7 mg/dL (2.5-4.9)
[2019-05-07 07:13] LABS: NUCLEATED RED BLOOD CELLS 5 /100 WBC
[2019-05-07 07:14] LABS: PLATELET ESTIMATE NORMAL
[2019-05-07] MEDS: BENZTROPINE MESYLATE 1MG/1ML 2ML AMP IM SCH (08:19)
[2019-05-07] MEDS: HALOPERIDOL LACTATE 5MG/ML VIAL IM SCH ×2 (08:19→20:41)
[2019-05-07 08:46] LABS: BG BASE EXCESS 1.9 mmol/L (-2.0-2.0); BG CARBOXYHEMOGLOBIN 0.7 % (0.5-1.5); BG DEOXYHEMOGLOBIN 1.4 % (0.0-5.0); BG FRACTION INSPIRED OXYGEN 60; BG HCO3 ACT 27.4 mmol/L (22.0-26.0); BG METHEMOGLOBIN 0.3 % (0.0-1.5); BG OXYGEN SATURATION 98.6 % (92.0-98.5); BG OXYHEMOGLOBIN 97.6 % (94.0-97.0); BG PCO2 46.2 mmHg (35.0-45.0); BG PH 7.391 (7.350-7.450); BG PO2 149.1 mmHg (75.0-100.0); BG SAMPLE SITE RIGHT RADIAL; BG TIDAL VOLUME(mL) 500 mL; BG VENT MODE VENT - A/C; BG VENT RATE 12 set
[2019-05-07] MEDS ORDERED: VECURONIUM BROMIDE 10 MG in DEXT 5% WATER 100 ML IV PRN (09:00)
[2019-05-07] MEDS ORDERED: MEPERIDINE HCL/PF 25MG/ML CPJ IM PRN (09:45)
[2019-05-07] MEDS: METHADONE HCL 10MG TABLET NG SCH (10:05)
[2019-05-07] MEDS: LORAZEPAM 2MG/ML CPJ IV PRN ×2 (10:19→16:10)
[2019-05-07] MEDS: HYDROCORTISONE SOD SUCCINATE 100 MG/2 ML VIAL IV SCH ×2 (11:56→18:33)
[2019-05-07] MEDS: CEFTRIAXONE 2 G in DEXTROSE 5% WATER 50 ML IV SCH (14:28)
[2019-05-07] MEDS: IPRATROPIUM BROMIDE (0.02%) 0.5MG/2.5ML NEB HHN PRN (17:29)
[2019-05-07] MEDS: LEVOFLOXACIN 500MG PREMIX 100 ML IV SCH (18:33)
[2019-05-08] VITALS (88 sets, daily range): BP systolic 101–124; BP diastolic 50–67
[2019-05-08] MEDS: HYDROCORTISONE SOD SUCCINATE 100 MG/2 ML VIAL IV SCH ×3 (01:54→17:40)
[2019-05-08] MEDS: FENTANYL CITRATE/PF 500 MCG in SODIUM CHLORIDE 0.9% 40 ML IV PRN ×4 (01:55→19:10)
[2019-05-08] MEDS: IPRATROPIUM BROMIDE (0.02%) 0.5MG/2.5ML NEB HHN SCH ×4 (02:06→19:58)
[2019-05-08] MEDS: MIDAZOLAM HCL 100 MG in DEXT 5% WATER 80 ML IV PRN ×3 (02:56→22:39)
[2019-05-08 04:53] LABS: HEMATOCRIT. 26.5 % (42.0-52.0); HEMOGLOBIN. 8.6 g/dL (14.0-18.0); MEAN CORPUSCULAR HEMOGLOBIN 25.1 pg (28.0-32.0); RED BLOOD CELL COUNT 3.44 mill/uL (4.7-6.1); RED CELL DISTRIBUTION WIDTH 25.9 % (11.6-14.6)
[2019-05-08 04:58] LABS: CHLORIDE 110 mEq/L (98-107)
[2019-05-08] MEDS: DEXTROSE 5% WATER 1,000 ML IV SCH ×3 (05:02→21:41)
[2019-05-08] MEDS: BENZTROPINE MESYLATE 1MG/1ML 2ML AMP IM SCH (08:29)
[2019-05-08] MEDS: METHADONE HCL 10MG TABLET NG SCH (08:29)
[2019-05-08] MEDS: HALOPERIDOL LACTATE 5MG/ML VIAL IM SCH ×2 (08:29→21:41)
[2019-05-08 10:04] LABS: BG BASE EXCESS -0.1 mmol/L (-2.0-2.0); BG CARBOXYHEMOGLOBIN 0.3 % (0.5-1.5); BG DEOXYHEMOGLOBIN 1.7 % (0.0-5.0); BG FRACTION INSPIRED OXYGEN 60; BG HCO3 ACT 25.4 mmol/L (22.0-26.0); BG METHEMOGLOBIN 0.6 % (0.0-1.5); BG OXYGEN SATURATION 98.3 % (92.0-98.5); BG OXYHEMOGLOBIN 97.4 % (94.0-97.0); BG PCO2 45.8 mmHg (35.0-45.0); BG PH 7.362 (7.350-7.450); BG SAMPLE SITE RIGHT RADIAL; BG TIDAL VOLUME(mL) 500 mL; BG TOTAL HEMOGLOBIN 8.7 g/dL (12.0-18.0); BG VENT MODE VENT - A/C; BG VENT RATE 12 set
[2019-05-08 10:08] LABS: NUCLEATED RED BLOOD CELLS 4 /100 WBC
[2019-05-08 10:10] LABS: PLATELET ESTIMATE NORMAL
[2019-05-08] MEDS: ACETYLCYSTEINE 100MG/ML 10% VIAL 4ML INH SCH (10:11)
[2019-05-08] MEDS: LEVOFLOXACIN 500MG PREMIX 100 ML IV SCH (17:44)
[2019-05-09] VITALS (96 sets, daily range): BP systolic 102–135; BP diastolic 52–82
[2019-05-09] MEDS: FENTANYL CITRATE/PF 1,000 MCG in SODIUM CHLORIDE 0.9% 80 ML IV PRN ×2 (00:20→09:54)
[2019-05-09] MEDS: IPRATROPIUM BROMIDE (0.02%) 0.5MG/2.5ML NEB HHN SCH ×3 (02:04→20:40)
[2019-05-09] MEDS: HYDROCORTISONE SOD SUCCINATE 100 MG/2 ML VIAL IV SCH ×3 (04:05→17:58)
[2019-05-09 05:53] LABS: HEMATOCRIT. 25.4 % (42.0-52.0); HEMOGLOBIN. 8.3 g/dL (14.0-18.0); MEAN CORPUSCULAR HEMOGLOBIN 25.3 pg (28.0-32.0); MEAN CORPUSCULAR VOLUME 77.1 fL (80.0-94.0); MEAN PLATELET VOLUME 11.3 fl (7.4-10.4); PLATELET 405 x1000/uL (130-400); RED BLOOD CELL COUNT 3.29 mill/uL (4.7-6.1); RED CELL DISTRIBUTION WIDTH 26.3 % (11.6-14.6)
[2019-05-09 06:36] LABS: CHLORIDE 106 mEq/L (98-107)
[2019-05-09] MEDS: DEXTROSE 5% WATER 1,000 ML IV SCH (06:40)
[2019-05-09] MEDS ORDERED: POTASSIUM CHLORIDE 20MEQ/PACKET PO NR (07:30)
[2019-05-09 08:09] LABS: NUCLEATED RED BLOOD CELLS 2 /100 WBC; PLATELET ESTIMATE INCREASED
[2019-05-09 08:17] LABS: BG BASE EXCESS 0.3 mmol/L (-2.0-2.0); BG CARBOXYHEMOGLOBIN 0.2 % (0.5-1.5); BG DEOXYHEMOGLOBIN 2.4 % (0.0-5.0); BG FRACTION INSPIRED OXYGEN 50; BG HCO3 ACT 25.9 mmol/L (22.0-26.0); BG METHEMOGLOBIN 1.2 % (0.0-1.5); BG OXYGEN SATURATION 97.6 % (92.0-98.5); BG OXYHEMOGLOBIN 96.2 % (94.0-97.0); BG PH 7.368 (7.350-7.450); BG PO2 134.7 mmHg (75.0-100.0); BG SAMPLE SITE RIGHT RADIAL; BG TIDAL VOLUME(mL) 500 mL; BG TOTAL HEMOGLOBIN 9.8 g/dL (12.0-18.0); BG VENT MODE VENT - A/C; BG VENT RATE 12 set
[2019-05-09] MEDS: METHADONE HCL 10MG TABLET NG SCH (08:43)
[2019-05-09] MEDS: HALOPERIDOL LACTATE 5MG/ML VIAL IM SCH ×2 (08:44→21:03)
[2019-05-09] MEDS: BENZTROPINE MESYLATE 1MG/1ML 2ML AMP IM SCH (08:44)
[2019-05-09] MEDS: MIDAZOLAM HCL 100 MG in DEXT 5% WATER 80 ML IV PRN (09:29)
[2019-05-09] MEDS: LEVOFLOXACIN 750MG PREMIX 150 ML IV SCH (11:08)
[2019-05-09] MEDS: LORAZEPAM 2MG/ML CPJ IV PRN ×2 (18:36→21:32)
[2019-05-10] VITALS (66 sets, daily range): BP systolic 110–144; BP diastolic 62–91
[2019-05-10] MEDS: HYDROCORTISONE SOD SUCCINATE 100 MG/2 ML VIAL IV SCH ×3 (01:34→18:14)
[2019-05-10] MEDS: LORAZEPAM 2MG/ML CPJ IV PRN ×3 (02:06→21:34)
[2019-05-10] MEDS: FENTANYL CITRATE/PF 1,000 MCG in SODIUM CHLORIDE 0.9% 80 ML IV PRN (04:18)
[2019-05-10 05:23] LABS: HEMATOCRIT. 27.3 % (42.0-52.0); HEMOGLOBIN. 8.8 g/dL (14.0-18.0); MEAN CORPUSCULAR HEMOGLOBIN 25.3 pg (28.0-32.0); MEAN CORPUSCULAR VOLUME 78.3 fL (80.0-94.0); MEAN PLATELET VOLUME 10.9 fl (7.4-10.4); PLATELET 555 x1000/uL (130-400); RED BLOOD CELL COUNT 3.49 mill/uL (4.7-6.1); RED CELL DISTRIBUTION WIDTH 25.6 % (11.6-14.6)
[2019-05-10 05:27] LABS: CHLORIDE 112 mEq/L (98-107)
[2019-05-10 05:33] LABS: PHOSPHORUS 3.8 mg/dL (2.5-4.9)
[2019-05-10 08:22] LABS: NUCLEATED RED BLOOD CELLS 6 /100 WBC
[2019-05-10 08:24] LABS: PLATELET ESTIMATE INCREASED
[2019-05-10] MEDS: HALOPERIDOL LACTATE 5MG/ML VIAL IM SCH ×2 (08:55→21:14)
[2019-05-10] MEDS: IPRATROPIUM BROMIDE (0.02%) 0.5MG/2.5ML NEB HHN SCH ×3 (08:56→20:15)
[2019-05-10] MEDS: BENZTROPINE MESYLATE 1MG/1ML 2ML AMP IM SCH (08:56)
[2019-05-10] MEDS: METHADONE HCL 10MG TABLET NG SCH (08:56)
[2019-05-10] MEDS: LEVOFLOXACIN 750MG PREMIX 150 ML IV SCH (11:42)
[2019-05-10 13:47] LABS: BG BASE EXCESS 4.3 mmol/L (-2.0-2.0); BG CARBOXYHEMOGLOBIN 0.1 % (0.5-1.5); BG DEOXYHEMOGLOBIN 2.5 % (0.0-5.0); BG FRACTION INSPIRED OXYGEN 40; BG HCO3 ACT 30.3 mmol/L (22.0-26.0); BG METHEMOGLOBIN 0.4 % (0.0-1.5); BG OXYGEN SATURATION 97.5 % (92.0-98.5); BG PCO2 53.3 mmHg (35.0-45.0); BG PH 7.373 (7.350-7.450); BG PO2 107.5 mmHg (75.0-100.0); BG PRESSURE SUPPORT 8; BG SAMPLE SITE RIGHT RADIAL; BG TOTAL HEMOGLOBIN 9.2 g/dL (12.0-18.0); BG VENT MODE VENT - CPAP
[2019-05-10] MEDS: PHENOL/SODIUM PHENOLATE 1.4% SRPAY 177ML MM PRN (18:49)
[2019-05-11] VITALS (47 sets, daily range): BP systolic 116–159; BP diastolic 53–99
[2019-05-11] MEDS: HYDROCORTISONE SOD SUCCINATE 100 MG/2 ML VIAL IV SCH (01:36)
[2019-05-11] MEDS: IPRATROPIUM BROMIDE (0.02%) 0.5MG/2.5ML NEB HHN SCH ×3 (02:10→13:27)
[2019-05-11] MEDS: LORAZEPAM 2MG/ML CPJ IV PRN (04:29)
[2019-05-11 05:16] LABS: BASOPHILS % 0.5 % (0.0-2.0); EOSINOPHILS % 0.5 % (0.0-5.0); HEMATOCRIT. 30.1 % (42.0-52.0); HEMOGLOBIN. 9.6 g/dL (14.0-18.0); LYMPHOCYTES % 25.5 % (20.0-50.0); MEAN CORPUSCULAR HEMOGLOBIN 25.3 pg (28.0-32.0); MEAN CORPUSCULAR VOLUME 79.5 fL (80.0-94.0); MEAN PLATELET VOLUME 10.2 fl (7.4-10.4); MONOCYTES % 2.7 % (2.0-8.0); NEUTROPHILS % 70.8 % (40.0-76.0); PLATELET 499 x1000/uL (130-400); RED BLOOD CELL COUNT 3.78 mill/uL (4.7-6.1); RED CELL DISTRIBUTION WIDTH 24.2 % (11.6-14.6)
[2019-05-11 05:24] LABS: CHLORIDE 117 mEq/L (98-107)
[2019-05-11] MEDS ORDERED: POTASSIUM CHLORIDE 20MEQ/PACKET PO SCH (08:15)
[2019-05-11] MEDS: HALOPERIDOL LACTATE 5MG/ML VIAL IM SCH (08:16)
[2019-05-11] MEDS: BENZTROPINE MESYLATE 1MG/1ML 2ML AMP IM SCH (08:16)
[2019-05-11] MEDS: METHADONE HCL 10MG TABLET NG SCH (08:16)
[2019-05-11] MEDS: DEXTROSE 5% WATER 1,000 ML IV SCH (08:56)
[2019-05-11] MEDS ORDERED: HYDROCORTISONE SOD SUCCINATE 100 MG/2 ML VIAL IV SCH (10:00)
[2019-05-11] MEDS: LEVOFLOXACIN 750MG PREMIX 150 ML IV SCH (10:23)
[2019-05-11] MEDS: PHENOL/SODIUM PHENOLATE 1.4% SRPAY 177ML MM PRN (16:24)
[2019-05-11] MEDS: IPRATROPIUM/ALBUTEROL 0.5-3(2.5)MG/3ML NEB HHN SCH (20:17)
[2019-05-11] MEDS: ACETYLCYSTEINE 100MG/ML 10% VIAL 4ML INH SCH (20:18)
[2019-05-11] MEDS: ACETAMINOPHEN 325MG TABLET PO PRN (20:53)
[2019-05-11] MEDS ORDERED: ACETYLCYSTEINE 100MG/ML 10% VIAL 4ML INH SCH (21:00)
[2019-05-12] VITALS (43 sets, daily range): BP systolic 120–148; BP diastolic 66–105
[2019-05-12] MEDS: IPRATROPIUM/ALBUTEROL 0.5-3(2.5)MG/3ML NEB HHN SCH ×6 (00:51→20:40)
[2019-05-12] MEDS: DEXTROSE 5% WATER 1,000 ML IV SCH ×2 (01:11→17:35)
[2019-05-12 07:22] LABS: CHLORIDE 115 mEq/L (98-107)
[2019-05-12 07:28] LABS: BASOPHILS % 0.6 % (0.0-2.0); EOSINOPHILS % 1.2 % (0.0-5.0); HEMATOCRIT. 31.2 % (42.0-52.0); HEMOGLOBIN. 9.9 g/dL (14.0-18.0); LYMPHOCYTES % 15.2 % (20.0-50.0); MEAN CORPUSCULAR HEMOGLOBIN 25.5 pg (28.0-32.0); MEAN CORPUSCULAR VOLUME 80.4 fL (80.0-94.0); MEAN PLATELET VOLUME 10.5 fl (7.4-10.4); MONOCYTES % 3.4 % (2.0-8.0); NEUTROPHILS % 79.6 % (40.0-76.0); PLATELET 625 x1000/uL (130-400); RED BLOOD CELL COUNT 3.89 mill/uL (4.7-6.1); RED CELL DISTRIBUTION WIDTH 23.3 % (11.6-14.6)
[2019-05-12 07:43] LABS: PHOSPHORUS 3.8 mg/dL (2.5-4.9)
[2019-05-12] MEDS: ACETYLCYSTEINE 100MG/ML 10% VIAL 4ML INH SCH ×2 (08:37→15:33)
[2019-05-12] MEDS ORDERED: METHADONE HCL 10MG TABLET NG SCH (09:00)
[2019-05-12] MEDS: LEVOFLOXACIN 750MG PREMIX 150 ML IV SCH (12:12)
[2019-05-12] MEDS: ACETAMINOPHEN 325MG TABLET PO PRN (12:25)
[2019-05-13] VITALS (22 sets, daily range): BP systolic 113–139; BP diastolic 70–91
[2019-05-13] MEDS: ACETYLCYSTEINE 100MG/ML 10% VIAL 4ML INH SCH ×3 (00:31→16:03)
[2019-05-13] MEDS: IPRATROPIUM/ALBUTEROL 0.5-3(2.5)MG/3ML NEB HHN SCH ×6 (00:31→20:37)
[2019-05-13 10:51] LABS: CHLORIDE 111 mEq/L (98-107)
[2019-05-13 10:54] LABS: HEMOGLOBIN 8.9 g/dL (14.0-18.0); MEAN CORPUSCULAR HEMOGLOBIN 25.6 pg (28.0-32.0); MEAN CORPUSCULAR VOLUME 80.7 fL (80.0-94.0); PLATELET 542 x1000/uL (130-400); RED BLOOD CELL COUNT 3.47 mill/uL (4.7-6.1); RED CELL DISTRIBUTION WIDTH 23.5 % (11.6-14.6)
[2019-05-13] MEDS: LEVOFLOXACIN 750MG PREMIX 150 ML IV SCH (11:53)
[2019-05-14] VITALS (11 sets, daily range): BP systolic 115–132; BP diastolic 68–98
[2019-05-14] MEDS: IPRATROPIUM/ALBUTEROL 0.5-3(2.5)MG/3ML NEB HHN SCH ×6 (00:11→21:18)
[2019-05-14] MEDS: ACETYLCYSTEINE 100MG/ML 10% VIAL 4ML INH SCH ×3 (00:11→16:54)
[2019-05-14 06:33] LABS: BASOPHILS % 0.6 % (0.0-2.0); EOSINOPHILS % 2.9 % (0.0-5.0); HEMATOCRIT. 28.4 % (42.0-52.0); HEMOGLOBIN. 9.1 g/dL (14.0-18.0); LYMPHOCYTES % 14.8 % (20.0-50.0); MEAN CORPUSCULAR HEMOGLOBIN 25.3 pg (28.0-32.0); MEAN CORPUSCULAR VOLUME 78.9 fL (80.0-94.0); MEAN PLATELET VOLUME 10.2 fl (7.4-10.4); MONOCYTES % 2.9 % (2.0-8.0); NEUTROPHILS % 78.8 % (40.0-76.0); PLATELET 470 x1000/uL (130-400); RED CELL DISTRIBUTION WIDTH 22.8 % (11.6-14.6)
[2019-05-14 06:37] LABS: CHLORIDE 103 mEq/L (98-107)
[2019-05-14] MEDS: LEVOFLOXACIN 750MG PREMIX 150 ML IV SCH (11:32)
[2019-05-14] MEDS: ACETAMINOPHEN 325MG TABLET PO PRN (13:46)
[2019-05-14] MEDS: DIPHENHYDRAMINE 50MG/ML VIAL IV PRN (22:47)
[2019-05-15] VITALS (12 sets, daily range): BP systolic 115–149; BP diastolic 64–85
[2019-05-15] MEDS: ACETYLCYSTEINE 100MG/ML 10% VIAL 4ML INH SCH ×3 (01:12→17:09)
[2019-05-15] MEDS: IPRATROPIUM/ALBUTEROL 0.5-3(2.5)MG/3ML NEB HHN SCH ×6 (01:13→20:12)
[2019-05-15 07:23] LABS: CHLORIDE 99 mEq/L (98-107)
[2019-05-15 08:50] LABS: BASOPHILS % 0.3 % (0.0-2.0); EOSINOPHILS % 5.8 % (0.0-5.0); HEMATOCRIT. 31.9 % (42.0-52.0); HEMOGLOBIN. 10.3 g/dL (14.0-18.0); LYMPHOCYTES % 12.3 % (20.0-50.0); MEAN CORPUSCULAR HEMOGLOBIN 25.4 pg (28.0-32.0); MEAN CORPUSCULAR VOLUME 79.1 fL (80.0-94.0); MEAN PLATELET VOLUME 10.6 fl (7.4-10.4); MONOCYTES % 3.9 % (2.0-8.0); NEUTROPHILS % 77.7 % (40.0-76.0); PLATELET 444 x1000/uL (130-400); RED BLOOD CELL COUNT 4.04 mill/uL (4.7-6.1); RED CELL DISTRIBUTION WIDTH 23.4 % (11.6-14.6)
[2019-05-15] MEDS: LEVOFLOXACIN 750MG PREMIX 150 ML IV SCH (10:48)
[2019-05-15] MEDS: LIDOCAINE 5% PATCH TOP SCH (12:35)
[2019-05-15] MEDS: PHENOL/SODIUM PHENOLATE 1.4% SRPAY 177ML MM PRN ×2 (17:52→20:44)
[2019-05-15] MEDS: THROAT LOZENGES-BENZOCAINE/MENTH/CETYLPYRD CL LOZENGES MM PRN (22:13)
[2019-05-15] MEDS: DIPHENHYDRAMINE 50MG/ML VIAL IV PRN (22:32)
[2019-05-16] VITALS (13 sets, daily range): BP systolic 111–130; BP diastolic 58–91
[2019-05-16] MEDS: IPRATROPIUM/ALBUTEROL 0.5-3(2.5)MG/3ML NEB HHN SCH ×5 (00:24→20:38)
[2019-05-16] MEDS: ACETYLCYSTEINE 100MG/ML 10% VIAL 4ML INH SCH ×3 (00:24→16:19)
[2019-05-16 06:52] LABS: CHLORIDE 96 mEq/L (98-107)
[2019-05-16 06:55] LABS: BASOPHILS % 0.5 % (0.0-2.0); EOSINOPHILS % 7.3 % (0.0-5.0); HEMATOCRIT. 32.5 % (42.0-52.0); HEMOGLOBIN. 10.5 g/dL (14.0-18.0); LYMPHOCYTES % 12.6 % (20.0-50.0); MEAN CORPUSCULAR VOLUME 77.6 fL (80.0-94.0); MEAN PLATELET VOLUME 10.7 fl (7.4-10.4); MONOCYTES % 4.9 % (2.0-8.0); NEUTROPHILS % 74.7 % (40.0-76.0); PLATELET 363 x1000/uL (130-400); RED BLOOD CELL COUNT 4.19 mill/uL (4.7-6.1); RED CELL DISTRIBUTION WIDTH 23.4 % (11.6-14.6)
[2019-05-16] MEDS: DIPHENHYDRAMINE 50MG/ML VIAL IV PRN (08:48)
[2019-05-16] MEDS: LIDOCAINE 5% PATCH TOP SCH (08:49)
[2019-05-16] MEDS: PHENOL/SODIUM PHENOLATE 1.4% SRPAY 177ML MM PRN ×2 (08:50→18:04)
[2019-05-16] MEDS: THROAT LOZENGES-BENZOCAINE/MENTH/CETYLPYRD CL LOZENGES MM PRN ×2 (08:50→18:03)
[2019-05-16 10:02] LABS: BG BASE EXCESS 4.8 mmol/L (-2.0-2.0); BG CARBOXYHEMOGLOBIN 0.3 % (0.5-1.5); BG DEOXYHEMOGLOBIN 2.2 % (0.0-5.0); BG FRACTION INSPIRED OXYGEN 40; BG HCO3 ACT 28.6 mmol/L (22.0-26.0); BG METHEMOGLOBIN 0.1 % (0.0-1.5); BG OXYGEN SATURATION 97.8 % (92.0-98.5); BG OXYHEMOGLOBIN 97.4 % (94.0-97.0); BG PCO2 39.7 mmHg (35.0-45.0); BG PH 7.476 (7.350-7.450); BG PO2 111.1 mmHg (75.0-100.0); BG SAMPLE SITE RIGHT RADIAL; BG VENT MODE NASAL CANNULA
[2019-05-16] MEDS: ACETAMINOPHEN 325MG TABLET PO PRN (11:24)
[2019-05-16] MEDS: LEVOFLOXACIN 750MG PREMIX 150 ML IV SCH (15:25)
[2019-05-16] MEDS: IPRATROPIUM BROMIDE (0.02%) 0.5MG/2.5ML NEB HHN PRN (16:20)
[2019-05-17] VITALS (12 sets, daily range): BP systolic 99–133; BP diastolic 51–80
[2019-05-17] MEDS: IPRATROPIUM/ALBUTEROL 0.5-3(2.5)MG/3ML NEB HHN SCH ×7 (00:37→17:50)
[2019-05-17] MEDS: DIPHENHYDRAMINE 50MG/ML VIAL IV PRN (01:38)
[2019-05-17 06:36] LABS: BASOPHILS % 0.5 % (0.0-2.0); HEMATOCRIT. 30.4 % (42.0-52.0); HEMOGLOBIN. 9.9 g/dL (14.0-18.0); LYMPHOCYTES % 8.1 % (20.0-50.0); MEAN CORPUSCULAR HEMOGLOBIN 25.2 pg (28.0-32.0); MEAN CORPUSCULAR VOLUME 77.1 fL (80.0-94.0); MONOCYTES % 5.5 % (2.0-8.0); NEUTROPHILS % 80.9 % (40.0-76.0); RED BLOOD CELL COUNT 3.94 mill/uL (4.7-6.1); RED CELL DISTRIBUTION WIDTH 23.2 % (11.6-14.6)
[2019-05-17 06:45] LABS: CHLORIDE 95 mEq/L (98-107)
[2019-05-17] MEDS: LIDOCAINE 5% PATCH TOP SCH (10:03)
[2019-05-17 10:17] LABS: PLATELET 324 x1000/uL (130-400)
[2019-05-17] MEDS: LEVOFLOXACIN 750MG PREMIX 150 ML IV SCH (11:10)
[2019-05-17] MEDS: IPRATROPIUM BROMIDE (0.02%) 0.5MG/2.5ML NEB HHN PRN ×3 (13:21→21:01)
[2019-05-17] MEDS: ONDANSETRON HCL 4MG/2ML INJ IV PRN (16:42)
[2019-05-17] MEDS: ACETAMINOPHEN 325MG TABLET PO PRN (17:56)
[2019-05-17] MEDS ORDERED: VANCOMYCIN 1250MG in DEXTROSE 5% WATER 250ML IV SCH (21:00)
[2019-05-17] MEDS: THROAT LOZENGES-BENZOCAINE/MENTH/CETYLPYRD CL LOZENGES MM PRN (21:37)
[2019-05-18] VITALS (12 sets, daily range): BP systolic 111–133; BP diastolic 56–88
[2019-05-18] MEDS: ACETAMINOPHEN 325MG TABLET PO PRN (00:42)
[2019-05-18] MEDS: IPRATROPIUM BROMIDE (0.02%) 0.5MG/2.5ML NEB HHN PRN ×4 (01:11→20:10)
[2019-05-18] MEDS: DIPHENHYDRAMINE 50MG/ML VIAL IV PRN (03:00)
[2019-05-18] MEDS: PHENOL/SODIUM PHENOLATE 1.4% SRPAY 177ML MM PRN (05:30)
[2019-05-18 06:44] LABS: BASOPHILS % 0.8 % (0.0-2.0); HEMATOCRIT. 28.9 % (42.0-52.0); HEMOGLOBIN. 9.3 g/dL (14.0-18.0); LYMPHOCYTES % 8.8 % (20.0-50.0); MEAN CORPUSCULAR HEMOGLOBIN 24.6 pg (28.0-32.0); MEAN CORPUSCULAR VOLUME 76.2 fL (80.0-94.0); MEAN PLATELET VOLUME 11.7 fl (7.4-10.4); MONOCYTES % 3.7 % (2.0-8.0); NEUTROPHILS % 81.7 % (40.0-76.0); PLATELET 277 x1000/uL (130-400); RED CELL DISTRIBUTION WIDTH 23.2 % (11.6-14.6)
[2019-05-18 07:36] LABS: CHLORIDE 96 mEq/L (98-107)
[2019-05-18] MEDS: IPRATROPIUM/ALBUTEROL 0.5-3(2.5)MG/3ML NEB HHN SCH ×3 (07:48→18:15)
[2019-05-18] MEDS: LIDOCAINE 5% PATCH TOP SCH (08:14)
[2019-05-18] MEDS ORDERED: VANCOMYCIN 1 G PREMIX 200 ML IV SCH (09:00)
[2019-05-18] MEDS: LEVOFLOXACIN 750MG PREMIX 150 ML IV SCH (11:40)
[2019-05-18] MEDS: ACETYLCYSTEINE 100MG/ML 10% VIAL 4ML INH SCH ×2 (16:06→18:15)
[2019-05-18] MEDS: VANCOMYCIN 1250MG in DEXTROSE 5% WATER 250ML IV SCH (17:51)
[2019-05-18] MEDS: ONDANSETRON HCL 4MG/2ML INJ IV PRN (18:51)
[2019-05-18] MEDS: LORAZEPAM 2MG/ML CPJ IV PRN (21:44)
[2019-05-18] MEDS: GUAIFENESIN 600MG ER TABLET PO SCH (21:44)
[2019-05-19] VITALS (12 sets, daily range): BP systolic 100–146; BP diastolic 49–88
[2019-05-19] MEDS: IPRATROPIUM/ALBUTEROL 0.5-3(2.5)MG/3ML NEB HHN SCH ×4 (00:24→20:49)
[2019-05-19] MEDS: ACETYLCYSTEINE 100MG/ML 10% VIAL 4ML INH SCH ×3 (00:24→16:20)
[2019-05-19] MEDS: ACETAMINOPHEN 325MG TABLET PO PRN (01:12)
[2019-05-19] MEDS: VANCOMYCIN 1250MG in DEXTROSE 5% WATER 250ML IV SCH (05:59)
[2019-05-19 07:19] LABS: CHLORIDE 94 mEq/L (98-107)
[2019-05-19 07:23] LABS: BASOPHILS % 1.4 % (0.0-2.0); EOSINOPHILS % 3.2 % (0.0-5.0); HEMATOCRIT. 29.4 % (42.0-52.0); HEMOGLOBIN. 9.4 g/dL (14.0-18.0); LYMPHOCYTES % 11.2 % (20.0-50.0); MEAN CORPUSCULAR HEMOGLOBIN 24.7 pg (28.0-32.0); MEAN CORPUSCULAR VOLUME 76.9 fL (80.0-94.0); MEAN PLATELET VOLUME 11.7 fl (7.4-10.4); MONOCYTES % 5.1 % (2.0-8.0); NEUTROPHILS % 79.1 % (40.0-76.0); PLATELET 258 x1000/uL (130-400); RED BLOOD CELL COUNT 3.82 mill/uL (4.7-6.1); RED CELL DISTRIBUTION WIDTH 24.1 % (11.6-14.6)
[2019-05-19] MEDS: ONDANSETRON HCL 4MG/2ML INJ IV PRN (09:08)
[2019-05-19] MEDS: GUAIFENESIN 600MG ER TABLET PO SCH ×2 (09:08→21:20)
[2019-05-19] MEDS: LIDOCAINE 5% PATCH TOP SCH (09:08)
[2019-05-19] MEDS: LEVOFLOXACIN 750MG PREMIX 150 ML IV SCH (11:53)
[2019-05-19] MEDS: IPRATROPIUM BROMIDE (0.02%) 0.5MG/2.5ML NEB HHN PRN (12:41)
[2019-05-19] MEDS: NYSTATIN 100,000 UNITS/ML 5ML UDC SSW SCH ×2 (18:31→23:58)
[2019-05-19] MEDS: LORAZEPAM 2MG/ML CPJ IV PRN (21:20)
[2019-05-20] VITALS (13 sets, daily range): BP systolic 96–137; BP diastolic 59–78
[2019-05-20] MEDS: DIPHENHYDRAMINE 50MG/ML VIAL IV PRN ×2 (00:26→21:02)
[2019-05-20] MEDS: ACETAMINOPHEN 325MG TABLET PO PRN ×2 (00:50→21:02)
[2019-05-20] MEDS: IPRATROPIUM/ALBUTEROL 0.5-3(2.5)MG/3ML NEB HHN SCH ×5 (01:26→20:47)
[2019-05-20] MEDS: ACETYLCYSTEINE 100MG/ML 10% VIAL 4ML INH SCH ×2 (01:27→16:58)
[2019-05-20] MEDS: NYSTATIN 100,000 UNITS/ML 5ML UDC SSW SCH ×3 (05:49→18:50)
[2019-05-20 06:32] LABS: EOSINOPHILS % 2.7 % (0.0-5.0); HEMATOCRIT. 26.8 % (42.0-52.0); HEMOGLOBIN. 8.7 g/dL (14.0-18.0); LYMPHOCYTES % 12.8 % (20.0-50.0); MEAN CORPUSCULAR HEMOGLOBIN 24.8 pg (28.0-32.0); MEAN PLATELET VOLUME 11.3 fl (7.4-10.4); MONOCYTES % 4.9 % (2.0-8.0); NEUTROPHILS % 78.6 % (40.0-76.0); PLATELET 239 x1000/uL (130-400); RED BLOOD CELL COUNT 3.53 mill/uL (4.7-6.1); RED CELL DISTRIBUTION WIDTH 23.4 % (11.6-14.6)
[2019-05-20 07:47] LABS: CHLORIDE 95 mEq/L (98-107)
[2019-05-20] MEDS: GUAIFENESIN 600MG ER TABLET PO SCH ×2 (08:47→22:04)
[2019-05-20] MEDS: LIDOCAINE 5% PATCH TOP SCH (08:48)
[2019-05-20] MEDS ORDERED: POTASSIUM CHLORIDE 20MEQ TABLET SR PO NR (11:30)
[2019-05-20] MEDS: LEVOFLOXACIN 750MG PREMIX 150 ML IV SCH (12:30)
[2019-05-20] MEDS: LORAZEPAM 2MG/ML CPJ IV PRN (21:02)
[2019-05-21] VITALS (13 sets, daily range): BP systolic 105–143; BP diastolic 56–78
[2019-05-21] MEDS: ACETYLCYSTEINE 100MG/ML 10% VIAL 4ML INH SCH ×3 (00:27→15:50)
[2019-05-21] MEDS: IPRATROPIUM/ALBUTEROL 0.5-3(2.5)MG/3ML NEB HHN SCH ×6 (00:27→20:53)
[2019-05-21] MEDS: NYSTATIN 100,000 UNITS/ML 5ML UDC SSW SCH ×4 (00:49→17:57)
[2019-05-21] MEDS: ACETAMINOPHEN 325MG TABLET PO PRN ×3 (05:50→18:44)
[2019-05-21 08:03] LABS: BASOPHILS % 0.8 % (0.0-2.0); EOSINOPHILS % 3.3 % (0.0-5.0); HEMATOCRIT. 26.2 % (42.0-52.0); HEMOGLOBIN. 8.6 g/dL (14.0-18.0); LYMPHOCYTES % 9.3 % (20.0-50.0); MEAN CORPUSCULAR VOLUME 76.6 fL (80.0-94.0); MEAN PLATELET VOLUME 11.4 fl (7.4-10.4); NEUTROPHILS % 80.6 % (40.0-76.0); PLATELET 264 x1000/uL (130-400); RED BLOOD CELL COUNT 3.42 mill/uL (4.7-6.1); RED CELL DISTRIBUTION WIDTH 23.4 % (11.6-14.6)
[2019-05-21 09:28] LABS: CHLORIDE 95 mEq/L (98-107)
[2019-05-21 09:35] LABS: PHOSPHORUS 4.4 mg/dL (2.5-4.9)
[2019-05-21] MEDS: GUAIFENESIN 600MG ER TABLET PO SCH ×2 (09:54→21:15)
[2019-05-21] MEDS: LIDOCAINE 5% PATCH TOP SCH (09:54)
[2019-05-21] MEDS: LEVOFLOXACIN 750MG PREMIX 150 ML IV SCH (12:49)
[2019-05-21 15:37] LABS: PLATELET ESTIMATE NORMAL
[2019-05-21] MEDS: DIPHENHYDRAMINE 50MG/ML VIAL IV PRN (21:15)
[2019-05-21] MEDS: LORAZEPAM 2MG/ML CPJ IV PRN (21:15)
[2019-05-22] VITALS (12 sets, daily range): BP systolic 105–126; BP diastolic 58–72
[2019-05-22] MEDS: NYSTATIN 100,000 UNITS/ML 5ML UDC SSW SCH ×4 (00:22→17:26)
[2019-05-22] MEDS: ACETYLCYSTEINE 100MG/ML 10% VIAL 4ML INH SCH ×3 (00:29→16:40)
[2019-05-22] MEDS: IPRATROPIUM/ALBUTEROL 0.5-3(2.5)MG/3ML NEB HHN SCH ×7 (00:29→20:40)
[2019-05-22] MEDS: ACETAMINOPHEN 325MG TABLET PO PRN (05:01)
[2019-05-22] MEDS: DIPHENHYDRAMINE 50MG/ML VIAL IV PRN (05:51)
[2019-05-22] MEDS: GUAIFENESIN 600MG ER TABLET PO SCH ×2 (08:35→20:11)
[2019-05-22] MEDS: LIDOCAINE 5% PATCH TOP SCH (09:47)
[2019-05-22] MEDS: LEVOFLOXACIN 750MG PREMIX 150 ML IV SCH (11:12)
[2019-05-22] MEDS: LORAZEPAM 2MG/ML CPJ IV PRN (20:11)
[2019-05-23] VITALS: BP 104/69
[2019-05-23] MEDS: NYSTATIN 100,000 UNITS/ML 5ML UDC SSW SCH ×4 (00:14→17:30)
[2019-05-23] MEDS: ACETYLCYSTEINE 100MG/ML 10% VIAL 4ML INH SCH ×2 (00:14→09:17)
[2019-05-23] MEDS: IPRATROPIUM/ALBUTEROL 0.5-3(2.5)MG/3ML NEB HHN SCH ×5 (00:14→20:25)
[2019-05-23 04:00] VITALS: BP 104/61
[2019-05-23] MEDS: LORAZEPAM 2MG/ML CPJ IV PRN ×2 (05:27→20:26)
[2019-05-23 07:07] LABS: BASOPHILS % 1.2 % (0.0-2.0); EOSINOPHILS % 2.3 % (0.0-5.0); HEMATOCRIT. 25.4 % (42.0-52.0); HEMOGLOBIN. 8.4 g/dL (14.0-18.0); LYMPHOCYTES % 14.8 % (20.0-50.0); MEAN CORPUSCULAR HEMOGLOBIN 25.3 pg (28.0-32.0); MEAN CORPUSCULAR VOLUME 76.9 fL (80.0-94.0); MEAN PLATELET VOLUME 10.2 fl (7.4-10.4); MONOCYTES % 6.3 % (2.0-8.0); NEUTROPHILS % 75.4 % (40.0-76.0); PLATELET 314 x1000/uL (130-400); RED CELL DISTRIBUTION WIDTH 23.1 % (11.6-14.6)
[2019-05-23 07:38] LABS: CHLORIDE 96 mEq/L (98-107)
[2019-05-23 07:45] LABS: PHOSPHORUS 4.1 mg/dL (2.5-4.9)
[2019-05-23 08:00] VITALS: BP 112/62
[2019-05-23] MEDS: GUAIFENESIN 600MG ER TABLET PO SCH ×2 (08:17→20:25)
[2019-05-23] MEDS: LIDOCAINE 5% PATCH TOP SCH (08:17)
[2019-05-23] MEDS: LEVOFLOXACIN 750MG PREMIX 150 ML IV SCH (10:35)
[2019-05-23] MEDS ORDERED: SENNOSIDES/DOCUSATE SOD 8.6/50MG TABLET PO PRN (11:45)
[2019-05-23 12:00] VITALS: BP 105/73
[2019-05-23 16:00] VITALS: BP 109/68
[2019-05-23] MEDS: ACETAMINOPHEN 325MG TABLET PO PRN (19:28)
[2019-05-23 20:00] VITALS: BP 111/67
[2019-05-23] MEDS ORDERED: LORAZEPAM 2MG/ML CPJ IV PRN (20:15)
[2019-05-23] MEDS: DIPHENHYDRAMINE 50MG/ML VIAL IV PRN (22:48)
[2019-05-24] VITALS (7 sets, daily range): BP systolic 95–117; BP diastolic 60–78
[2019-05-24] MEDS: IPRATROPIUM/ALBUTEROL 0.5-3(2.5)MG/3ML NEB HHN SCH ×6 (00:15→20:30)
[2019-05-24] MEDS: NYSTATIN 100,000 UNITS/ML 5ML UDC SSW SCH ×4 (00:33→18:03)
[2019-05-24 06:08] LABS: CHLORIDE 97 mEq/L (98-107)
[2019-05-24] MEDS: ACETAMINOPHEN 325MG TABLET PO PRN (06:09)
[2019-05-24 06:17] LABS: BASOPHILS % 0.9 % (0.0-2.0); EOSINOPHILS % 2.8 % (0.0-5.0); HEMATOCRIT. 25.2 % (42.0-52.0); HEMOGLOBIN. 8.3 g/dL (14.0-18.0); LYMPHOCYTES % 15.9 % (20.0-50.0); MEAN CORPUSCULAR HEMOGLOBIN 25.7 pg (28.0-32.0); MEAN CORPUSCULAR VOLUME 77.7 fL (80.0-94.0); MEAN PLATELET VOLUME 9.6 fl (7.4-10.4); MONOCYTES % 6.2 % (2.0-8.0); NEUTROPHILS % 74.2 % (40.0-76.0); PLATELET 311 x1000/uL (130-400); RED BLOOD CELL COUNT 3.24 mill/uL (4.7-6.1); RED CELL DISTRIBUTION WIDTH 23.4 % (11.6-14.6)
[2019-05-24] MEDS: GUAIFENESIN 600MG ER TABLET PO SCH ×2 (09:57→20:20)
[2019-05-24] MEDS: LIDOCAINE 5% PATCH TOP SCH (09:58)
[2019-05-24] MEDS: LEVOFLOXACIN 750MG PREMIX 150 ML IV SCH (11:20)
[2019-05-24] MEDS ORDERED: ERGOCALCIFEROL 50000UNITS CAPSULE PO SCH (18:30)
[2019-05-24] MEDS: LORAZEPAM 2MG/ML CPJ IV PRN (20:20)
[2019-05-24] MEDS: DIPHENHYDRAMINE 50MG/ML VIAL IV PRN (20:20)
[2019-05-25] VITALS (7 sets, daily range): BP systolic 110–126; BP diastolic 59–90
[2019-05-25] MEDS: DIPHENHYDRAMINE 50MG/ML VIAL IV PRN ×2 (01:37→23:55)
[2019-05-25] MEDS: IPRATROPIUM/ALBUTEROL 0.5-3(2.5)MG/3ML NEB HHN SCH ×5 (04:22→21:08)
[2019-05-25] MEDS: ACETAMINOPHEN 325MG TABLET PO PRN (06:23)
[2019-05-25] MEDS: NYSTATIN 100,000 UNITS/ML 5ML UDC SSW SCH ×5 (06:23→23:54)
[2019-05-25 06:30] LABS: EOSINOPHILS % 1.5 % (0.0-5.0); HEMATOCRIT. 24.5 % (42.0-52.0); HEMOGLOBIN. 8.2 g/dL (14.0-18.0); LYMPHOCYTES % 17.5 % (20.0-50.0); MEAN CORPUSCULAR HEMOGLOBIN 25.5 pg (28.0-32.0); MEAN CORPUSCULAR VOLUME 76.3 fL (80.0-94.0); MEAN PLATELET VOLUME 9.7 fl (7.4-10.4); MONOCYTES % 5.7 % (2.0-8.0); NEUTROPHILS % 74.3 % (40.0-76.0); PLATELET 338 x1000/uL (130-400); RED BLOOD CELL COUNT 3.22 mill/uL (4.7-6.1)
[2019-05-25 06:36] LABS: CHLORIDE 96 mEq/L (98-107)
[2019-05-25] MEDS ORDERED: POTASSIUM CHLORIDE 20MEQ TABLET SR PO SCH (08:45)
[2019-05-25] MEDS: LIDOCAINE 5% PATCH TOP SCH (09:12)
[2019-05-25] MEDS: GUAIFENESIN 600MG ER TABLET PO SCH ×2 (09:12→21:53)
[2019-05-25] MEDS: LEVOFLOXACIN 250MG TABLET PO SCH (13:58)
[2019-05-25] MEDS: TRAZODONE HCL 50MG TABLET PO PRN (21:53)
[2019-05-25] MEDS: LORAZEPAM 2MG/ML CPJ IV PRN (23:55)
[2019-05-26] VITALS (13 sets, daily range): BP systolic 86–113; BP diastolic 45–67
[2019-05-26] MEDS: IPRATROPIUM/ALBUTEROL 0.5-3(2.5)MG/3ML NEB HHN SCH ×6 (04:40→20:06)
[2019-05-26] MEDS: NYSTATIN 100,000 UNITS/ML 5ML UDC SSW SCH ×3 (05:46→18:59)
[2019-05-26 07:12] LABS: EOSINOPHILS % 1.6 % (0.0-5.0); HEMOGLOBIN. 7.8 g/dL (14.0-18.0); LYMPHOCYTES % 19.2 % (20.0-50.0); MEAN CORPUSCULAR HEMOGLOBIN 26.7 pg (28.0-32.0); MEAN CORPUSCULAR VOLUME 78.9 fL (80.0-94.0); MEAN PLATELET VOLUME 9.3 fl (7.4-10.4); MONOCYTES % 5.5 % (2.0-8.0); NEUTROPHILS % 72.7 % (40.0-76.0); PLATELET 350 x1000/uL (130-400); RED BLOOD CELL COUNT 2.92 mill/uL (4.7-6.1); RED CELL DISTRIBUTION WIDTH 23.4 % (11.6-14.6)
[2019-05-26 08:00] LABS: CHLORIDE 97 mEq/L (98-107)
[2019-05-26] MEDS ORDERED: ACETAMINOPHEN 325MG TABLET PO PRN (08:30)
[2019-05-26] MEDS: GUAIFENESIN 600MG ER TABLET PO SCH ×2 (08:39→20:41)
[2019-05-26] MEDS: LEVOFLOXACIN 250MG TABLET PO SCH (10:20)
[2019-05-26] MEDS: LIDOCAINE 5% PATCH TOP SCH (10:22)
[2019-05-26] MEDS ORDERED: SODIUM CHLORIDE 0.9% 250 ML IV ONE (20:15)
[2019-05-26] MEDS: TRAZODONE HCL 50MG TABLET PO PRN (20:40)
[2019-05-26] MEDS: LORAZEPAM 2MG/ML CPJ IV PRN (22:15)
[2019-05-27] VITALS: BP 111/66
[2019-05-27] MEDS: IPRATROPIUM/ALBUTEROL 0.5-3(2.5)MG/3ML NEB HHN SCH ×4 (00:08→13:27)
[2019-05-27] MEDS: DIPHENHYDRAMINE 50MG/ML VIAL IV PRN (00:41)
[2019-05-27] MEDS: NYSTATIN 100,000 UNITS/ML 5ML UDC SSW SCH ×3 (00:41→11:38)
[2019-05-27 01:19] LABS: HEMATOCRIT 28.1 % (42.0-52.0); HEMOGLOBIN 9.4 g/dL (14.0-18.0)
[2019-05-27 04:00] VITALS: BP 113/66
[2019-05-27 07:54] LABS: BASOPHILS % 1.7 % (0.0-2.0); EOSINOPHILS % 1.2 % (0.0-5.0); HEMATOCRIT. 26.1 % (42.0-52.0); HEMOGLOBIN. 8.8 g/dL (14.0-18.0); MEAN CORPUSCULAR HEMOGLOBIN 25.5 pg (28.0-32.0); MEAN CORPUSCULAR VOLUME 75.8 fL (80.0-94.0); MEAN PLATELET VOLUME 9.1 fl (7.4-10.4); MONOCYTES % 6.3 % (2.0-8.0); NEUTROPHILS % 72.8 % (40.0-76.0); PLATELET 425 x1000/uL (130-400); RED BLOOD CELL COUNT 3.44 mill/uL (4.7-6.1); RED CELL DISTRIBUTION WIDTH 22.6 % (11.6-14.6)
[2019-05-27 08:00] VITALS: BP 111/71
[2019-05-27 08:16] LABS: CHLORIDE 98 mEq/L (98-107)
[2019-05-27 08:24] LABS: TOTAL IRON BINDING CAPACITY 201 ug/dL (250-450)
[2019-05-27] MEDS: GUAIFENESIN 600MG ER TABLET PO SCH (09:30)
[2019-05-27] MEDS: LIDOCAINE 5% PATCH TOP SCH (09:30)
[2019-05-27] MEDS: LEVOFLOXACIN 250MG TABLET PO SCH (11:38)
[2019-05-27 11:57] VITALS: BP 107/67
[2019-05-27 13:15] VITALS: BP 107/67
== END 2019-05-27 13:54 | DRG 870 ==
LOC: ER 03:50 → EDBEDREQ 05:25 → EDBEDREQTM 05:25 → 5EST 05:55 → EDBEDREQ 06:02 → ENRESERV 10:37 → MICUNO 04-30 17:45 → 5EST 05-11 11:20 → 8WST 05-26 11:10
PROVIDERS: ADMIT Family Medicine Adult Medicine; ATTEND Family Medicine Adult Medicine
PROC: 5A1955Z Respiratory Ventilation, Greater than 96 Consecutive Hours (ICD-10-PCS; principal; 2019-04-30)
PROC: 0BH17EZ Insertion of Endotracheal Airway into Trachea, Via Natural or Artificial Opening (ICD-10-PCS; 2019-04-30)
PROC: 30233N1 Transfusion of Nonautologous Red Blood Cells into Peripheral Vein, Percutaneous Approach (ICD-10-PCS; 2019-05-01)
PROC: 02HV33Z Insertion of Infusion Device into Superior Vena Cava, Percutaneous Approach (ICD-10-PCS; 2019-05-03)
PROC: B548ZZA Ultrasonography of Superior Vena Cava, Guidance (ICD-10-PCS; 2019-05-03)
PROC: 30233K1 Transfusion of Nonautologous Frozen Plasma into Peripheral Vein, Percutaneous Approach (ICD-10-PCS; 2019-05-04)
PROC: 0W993ZZ Drainage of Right Pleural Cavity, Percutaneous Approach (ICD-10-PCS; 2019-05-05)
DX: A02.1 Salmonella sepsis (principal); E43 Unspecified severe protein-calorie malnutrition; J18.9 Pneumonia, unspecified organism; N17.0 Acute kidney failure with tubular necrosis; K72.00 Acute and subacute hepatic failure without coma; G82.50 Quadriplegia, unspecified; K85.90 Acute pancreatitis without necrosis or infection, unspecified; G92 Toxic encephalopathy; J96.01 Acute respiratory failure with hypoxia; N39.0 Urinary tract infection, site not specified; E87.4 Mixed disorder of acid-base balance; E87.1 Hypo-osmolality and hyponatremia; J91.8 Pleural effusion in other conditions classified elsewhere; G62.81 Critical illness polyneuropathy; B37.0 Candidal stomatitis; D62 Acute posthemorrhagic anemia; D68.4 Acquired coagulation factor deficiency; A41.50 Gram-negative sepsis, unspecified; D69.6 Thrombocytopenia, unspecified; D50.9 Iron deficiency anemia, unspecified; R65.20 Severe sepsis without septic shock; N18.9 Chronic kidney disease, unspecified; R74.0 Nonspecific elevation of levels of transaminase and lactic acid dehydrogenase [LDH]; R47.1 Dysarthria and anarthria; R13.10 Dysphagia, unspecified; L89.899 Pressure ulcer of other site, unspecified stage; R26.9 Unspecified abnormalities of gait and mobility; R62.7 Adult failure to thrive; K44.9 Diaphragmatic hernia without obstruction or gangrene; E83.52 Hypercalcemia; E87.5 Hyperkalemia; F03.90 Unspecified dementia, unspecified severity, without behavioral disturbance, psychotic disturbance, mood disturbance, and anxiety; H91.92 Unspecified hearing loss, left ear; M51.27 Other intervertebral disc displacement, lumbosacral region; M48.061 Spinal stenosis, lumbar region without neurogenic claudication; M48.02 Spinal stenosis, cervical region; Z95.0 Presence of cardiac pacemaker; Z93.1 Gastrostomy status; Z86.73 Personal history of transient ischemic attack (TIA), and cerebral infarction without residual deficits; Z68.20 Body mass index [BMI] 20.0-20.9, adult; Z79.899 Other long term (current) drug therapy; Z82.49 Family history of ischemic heart disease and other diseases of the circulatory system; Z83.3 Family history of diabetes mellitus
CPT/HCPCS: 36415; 36600; 70551; 71045; 71250; 71260; 72141; 72148; 73030; 74018; 74176; 74177; 74181; 76604; 76700; 76937; 77012; 80048; 80076; 80202; 80305; 80320; 81003; 82105; 82140; 82248; 82270; 82330; 82375; 82533; 82550; 82553; 82607; 82652; 82728; 82746; 82805; 83010; 83021; 83036; 83520; 83540; 83550; 83605; 83615; 83735; 83880; 83970; 84100; 84145; 84478; 84484; 85014; 85018; 85027; 85651; 85660; 86038; 86140; 86256; 86304; 86682; 86705; 86709; 86803; 86850; 86880; 86900; 86920; 86927; 87070; 87075; 87077; 87186; 87340; 87389; 92610; 93005; 93306; 93970; 94003; 94640; 94660; 94667; 97110; 97116; 97163; 97166; 97530; 97535; 99291; A6261; C1725; C1893; J0278; J0330; J0515; J0696; J1170; J1200; J1630; J1720; J1885; J1956; J2060; J2175; J2250; J2270; J2405; J2543; J2704; J3010; J3370; J3430; J3490; J7030; J7040; J7050; J7060; J7070; J7608; J7620; P9016; P9017; Q9963; Q9967; A4315; G0480

== ENCOUNTER 2019-05-27 13:55 | Inpatient (IN) | payer BC ==
[~2019-05-27] VITALS: Ht 175.3 cm; Wt 65.3 kg
[~2019-05-27 13:55] MED LIST: PRED10TA PO
[2019-05-27] MEDS ORDERED: DIPHENHYDRAMINE 25MG CAPSULE PO PRN (14:30)
[2019-05-27] MEDS ORDERED: SENNOSIDES/DOCUSATE SOD 8.6/50MG TABLET PO PRN (14:30)
[2019-05-27] MEDS ORDERED: TRAZODONE HCL 50MG TABLET PO PRN (14:30)
[2019-05-27] MEDS ORDERED: LORAZEPAM 0.5MG TABLET PO PRN (14:30)
[2019-05-27] MEDS ORDERED: PHENOL/SODIUM PHENOLATE 1.4% SRPAY 177ML MM PRN (15:30)
[2019-05-27 15:49] VITALS: BP 114/76
[2019-05-27] MEDS ORDERED: THROAT LOZENGES-BENZOCAINE/MENTH/CETYLPYRD CL LOZENGES MM PRN (16:30)
[2019-05-27] MEDS: NYSTATIN 100,000 UNITS/ML 5ML UDC SSW SCH ×2 (17:29→23:51)
[2019-05-27] MEDS: ACETAMINOPHEN 650MG/20.3ML UDC PO PRN (17:29)
[2019-05-27 17:40] VITALS: BP 114/76
[2019-05-27] MEDS: GUAIFENESIN 600MG ER TABLET PO SCH (20:19)
[2019-05-27] MEDS: IPRATROPIUM/ALBUTEROL 0.5-3(2.5)MG/3ML NEB HHN SCH (20:48)
[2019-05-28] MEDS: IPRATROPIUM/ALBUTEROL 0.5-3(2.5)MG/3ML NEB HHN SCH ×4 (00:42→08:00)
[2019-05-28] MEDS: NYSTATIN 100,000 UNITS/ML 5ML UDC SSW SCH ×3 (05:15→17:39)
[2019-05-28 07:10] LABS: BASOPHILS % 2.1 % (0.0-2.0); EOSINOPHILS % 1.1 % (0.0-5.0); HEMATOCRIT. 27.8 % (42.0-52.0); HEMOGLOBIN. 9.3 g/dL (14.0-18.0); LYMPHOCYTES % 18.3 % (20.0-50.0); MEAN CORPUSCULAR HEMOGLOBIN 26.2 pg (28.0-32.0); MEAN CORPUSCULAR VOLUME 77.9 fL (80.0-94.0); MONOCYTES % 3.8 % (2.0-8.0); NEUTROPHILS % 74.7 % (40.0-76.0); PLATELET 422 x1000/uL (130-400); RED BLOOD CELL COUNT 3.56 mill/uL (4.7-6.1); RED CELL DISTRIBUTION WIDTH 22.8 % (11.6-14.6)
[2019-05-28 07:52] LABS: CHLORIDE 99 mEq/L (98-107)
[2019-05-28 08:16] VITALS: BP 103/63
[2019-05-28] MEDS: GUAIFENESIN 600MG ER TABLET PO SCH ×2 (09:24→20:42)
[2019-05-28] MEDS: LIDOCAINE 5% PATCH TOP SCH (09:24)
[2019-05-28] MEDS: ACETAMINOPHEN 650MG/20.3ML UDC PO PRN (09:27)
[2019-05-28] MEDS: LEVOFLOXACIN 250MG TABLET PO SCH (11:18)
[2019-05-28] MEDS: IPRATROPIUM BROMIDE (0.02%) 0.5MG/2.5ML NEB HHN SCH ×2 (12:22→20:46)
[2019-05-28 20:00] VITALS: BP 107/67
[2019-05-29] MEDS: NYSTATIN 100,000 UNITS/ML 5ML UDC SSW SCH ×5 (00:04→23:20)
[2019-05-29 02:26] VITALS: BP 102/61
[2019-05-29] MEDS: IPRATROPIUM BROMIDE (0.02%) 0.5MG/2.5ML NEB HHN SCH ×4 (02:26→20:12)
[2019-05-29 05:40] VITALS: BP 92/58
[2019-05-29 06:03] LABS: BASOPHILS % 0.8 % (0.0-2.0); HEMATOCRIT. 26.7 % (42.0-52.0); HEMOGLOBIN. 8.8 g/dL (14.0-18.0); LYMPHOCYTES % 16.7 % (20.0-50.0); MEAN CORPUSCULAR HEMOGLOBIN 25.5 pg (28.0-32.0); MEAN CORPUSCULAR VOLUME 77.1 fL (80.0-94.0); MEAN PLATELET VOLUME 8.6 fl (7.4-10.4); MONOCYTES % 5.5 % (2.0-8.0); PLATELET 468 x1000/uL (130-400); RED BLOOD CELL COUNT 3.46 mill/uL (4.7-6.1); RED CELL DISTRIBUTION WIDTH 22.4 % (11.6-14.6)
[2019-05-29 06:34] LABS: CHLORIDE 100 mEq/L (98-107)
[2019-05-29 08:00] VITALS: BP 95/60
[2019-05-29] MEDS: GUAIFENESIN 600MG ER TABLET PO SCH ×2 (08:14→21:23)
[2019-05-29] MEDS: LIDOCAINE 5% PATCH TOP SCH (08:15)
[2019-05-29] MEDS: LEVOFLOXACIN 250MG TABLET PO SCH (10:59)
[2019-05-29 20:00] VITALS: BP 110/61
[2019-05-30] MEDS: IPRATROPIUM BROMIDE (0.02%) 0.5MG/2.5ML NEB HHN SCH ×4 (01:38→21:54)
[2019-05-30] MEDS: ACETAMINOPHEN 650MG/20.3ML UDC PO PRN (03:06)
[2019-05-30] MEDS: NYSTATIN 100,000 UNITS/ML 5ML UDC SSW SCH ×4 (05:25→23:09)
[2019-05-30 06:18] LABS: BASOPHILS % 0.4 % (0.0-2.0); EOSINOPHILS % 1.2 % (0.0-5.0); HEMATOCRIT. 27.2 % (42.0-52.0); HEMOGLOBIN. 9.1 g/dL (14.0-18.0); LYMPHOCYTES % 19.3 % (20.0-50.0); MEAN CORPUSCULAR HEMOGLOBIN 25.9 pg (28.0-32.0); MEAN CORPUSCULAR VOLUME 77.3 fL (80.0-94.0); MEAN PLATELET VOLUME 8.4 fl (7.4-10.4); MONOCYTES % 6.2 % (2.0-8.0); NEUTROPHILS % 72.9 % (40.0-76.0); PLATELET 517 x1000/uL (130-400); RED BLOOD CELL COUNT 3.52 mill/uL (4.7-6.1); RED CELL DISTRIBUTION WIDTH 22.5 % (11.6-14.6)
[2019-05-30 06:45] LABS: CHLORIDE 101 mEq/L (98-107)
[2019-05-30 07:00] VITALS: BP 100/66
[2019-05-30] MEDS ORDERED: POTASSIUM CHLORIDE 20MEQ TABLET SR PO NR (08:00)
[2019-05-30] MEDS: GUAIFENESIN 600MG ER TABLET PO SCH ×2 (08:30→21:15)
[2019-05-30] MEDS: LIDOCAINE 5% PATCH TOP SCH (08:36)
[2019-05-30] MEDS: LEVOFLOXACIN 250MG TABLET PO SCH (11:04)
[2019-05-30] MEDS ORDERED: POTASSIUM CHLORIDE 20MEQ TABLET SR PO SCH (13:45)
[2019-05-30 18:36] VITALS: BP_SYST 104; BP_SYST 111; BP_SYST 139; BP_DIAS 65; BP_DIAS 76; BP_DIAS 86
[2019-05-30 20:00] VITALS: BP_SYST 111; BP_SYST 120; BP_DIAS 66; BP_DIAS 75
[2019-05-31] MEDS: ACETAMINOPHEN 650MG/20.3ML UDC PO PRN (02:08)
[2019-05-31] MEDS: IPRATROPIUM BROMIDE (0.02%) 0.5MG/2.5ML NEB HHN SCH ×4 (02:57→20:05)
[2019-05-31] MEDS: NYSTATIN 100,000 UNITS/ML 5ML UDC SSW SCH ×3 (05:35→17:49)
[2019-05-31 06:52] LABS: BASOPHILS % 0.8 % (0.0-2.0); EOSINOPHILS % 0.9 % (0.0-5.0); HEMATOCRIT. 25.8 % (42.0-52.0); HEMOGLOBIN. 8.7 g/dL (14.0-18.0); LYMPHOCYTES % 23.3 % (20.0-50.0); MEAN CORPUSCULAR VOLUME 77.4 fL (80.0-94.0); MEAN PLATELET VOLUME 8.1 fl (7.4-10.4); MONOCYTES % 6.3 % (2.0-8.0); NEUTROPHILS % 68.7 % (40.0-76.0); PLATELET 509 x1000/uL (130-400); RED BLOOD CELL COUNT 3.33 mill/uL (4.7-6.1); RED CELL DISTRIBUTION WIDTH 22.1 % (11.6-14.6)
[2019-05-31 07:07] LABS: CHLORIDE 104 mEq/L (98-107)
[2019-05-31 07:13] LABS: VITAMIN B12 SERUM 443 pg/mL (211-911)
[2019-05-31 07:20] LABS: PHOSPHORUS 4.3 mg/dL (2.5-4.9)
[2019-05-31 07:21] LABS: FOLIC ACID (FOLATE) SERUM > 20.00 ng/mL (>5.38)
[2019-05-31 07:24] LABS: FERRITIN 3801 ng/mL (22-322)
[2019-05-31 07:25] LABS: TOTAL IRON BINDING CAPACITY 292 ug/dL (250-450)
[2019-05-31] MEDS: GUAIFENESIN 600MG ER TABLET PO SCH ×2 (08:06→20:43)
[2019-05-31] MEDS: LIDOCAINE 5% PATCH TOP SCH (08:06)
[2019-05-31 08:13] VITALS: BP 102/64
[2019-05-31] MEDS ORDERED: POTASSIUM CHLORIDE 20MEQ TABLET SR PO SCH (09:30)
[2019-05-31] MEDS: LEVOFLOXACIN 250MG TABLET PO SCH (11:58)
[2019-05-31] MEDS ORDERED: SODIUM CHLORIDE 0.9% 1,000 ML IV ONE (15:45)
[2019-05-31 16:53] VITALS: BP_SYST 112; BP_SYST 117; BP_SYST 118; BP_DIAS 67; BP_DIAS 70; BP_DIAS 76
[2019-05-31] MEDS: CYANOCOBALAMIN 1000MCG/ML VIAL IM SCH (17:49)
[2019-05-31] MEDS ORDERED: ERGOCALCIFEROL 50000UNITS CAPSULE PO SCH (18:00)
[2019-05-31 20:00] VITALS: BP_SYST 110; BP_SYST 112; BP_SYST 120; BP_DIAS 70; BP_DIAS 72; BP_DIAS 74
[2019-06-01] MEDS: NYSTATIN 100,000 UNITS/ML 5ML UDC SSW SCH ×5 (00:22→23:56)
[2019-06-01] MEDS: IPRATROPIUM BROMIDE (0.02%) 0.5MG/2.5ML NEB HHN SCH ×2 (01:09→09:47)
[2019-06-01 07:17] LABS: BASOPHILS % 0.6 % (0.0-2.0); EOSINOPHILS % 0.7 % (0.0-5.0); HEMATOCRIT. 24.7 % (42.0-52.0); HEMOGLOBIN. 8.4 g/dL (14.0-18.0); LYMPHOCYTES % 24.2 % (20.0-50.0); MEAN CORPUSCULAR HEMOGLOBIN 25.5 pg (28.0-32.0); MEAN CORPUSCULAR VOLUME 75.4 fL (80.0-94.0); MEAN PLATELET VOLUME 8.1 fl (7.4-10.4); MONOCYTES % 7.1 % (2.0-8.0); NEUTROPHILS % 67.4 % (40.0-76.0); PLATELET 498 x1000/uL (130-400); RED BLOOD CELL COUNT 3.28 mill/uL (4.7-6.1); RED CELL DISTRIBUTION WIDTH 22.2 % (11.6-14.6)
[2019-06-01 08:26] VITALS: BP 97/63
[2019-06-01 08:38] LABS: CHLORIDE 103 mEq/L (98-107)
[2019-06-01] MEDS: LIDOCAINE 5% PATCH TOP SCH (09:59)
[2019-06-01] MEDS: GUAIFENESIN 600MG ER TABLET PO SCH ×2 (09:59→21:00)
[2019-06-01] MEDS: CYANOCOBALAMIN 1000MCG/ML VIAL IM SCH (09:59)
[2019-06-01] MEDS: LEVOFLOXACIN 250MG TABLET PO SCH (10:38)
[2019-06-01] MEDS ORDERED: IPRATROPIUM/ALBUTEROL 0.5-3(2.5)MG/3ML NEB HHN PRN (13:15)
[2019-06-01 20:00] VITALS: BP 122/78
[2019-06-02 05:30] VITALS: BP_SYST 105; BP_SYST 109; BP_SYST 114; BP_DIAS 63; BP_DIAS 68; BP_DIAS 71
[2019-06-02] MEDS: NYSTATIN 100,000 UNITS/ML 5ML UDC SSW SCH ×3 (05:57→17:06)
[2019-06-02 06:22] LABS: BASOPHILS % 0.8 % (0.0-2.0); EOSINOPHILS % 0.8 % (0.0-5.0); HEMATOCRIT. 24.4 % (42.0-52.0); HEMOGLOBIN. 8.3 g/dL (14.0-18.0); LYMPHOCYTES % 30.9 % (20.0-50.0); MEAN CORPUSCULAR HEMOGLOBIN 26.1 pg (28.0-32.0); MEAN CORPUSCULAR VOLUME 76.5 fL (80.0-94.0); MEAN PLATELET VOLUME 8.1 fl (7.4-10.4); MONOCYTES % 7.5 % (2.0-8.0); PLATELET 540 x1000/uL (130-400); RED BLOOD CELL COUNT 3.19 mill/uL (4.7-6.1); RED CELL DISTRIBUTION WIDTH 22.5 % (11.6-14.6)
[2019-06-02 06:41] LABS: CHLORIDE 104 mEq/L (98-107)
[2019-06-02 08:03] VITALS: BP 104/59
[2019-06-02] MEDS: CYANOCOBALAMIN 1000MCG/ML VIAL IM SCH (08:30)
[2019-06-02] MEDS: LIDOCAINE 5% PATCH TOP SCH (08:30)
[2019-06-02] MEDS: GUAIFENESIN 600MG ER TABLET PO SCH ×2 (09:00→21:00)
[2019-06-02 10:53] VITALS: BP_SYST 104; BP_SYST 106; BP_SYST 125; BP_DIAS 67; BP_DIAS 72; BP_DIAS 74
[2019-06-02] MEDS ORDERED: LEVOFLOXACIN 250MG TABLET PO SCH (11:00)
[2019-06-02 20:00] VITALS: BP_SYST 104; BP_SYST 106; BP_SYST 112; BP_DIAS 65; BP_DIAS 70; BP_DIAS 72
[2019-06-03] MEDS: NYSTATIN 100,000 UNITS/ML 5ML UDC SSW SCH ×2 (07:14)
[2019-06-03 08:12] VITALS: BP 107/72
[2019-06-03] MEDS: LIDOCAINE 5% PATCH TOP SCH (08:30)
[2019-06-03] MEDS: GUAIFENESIN 600MG ER TABLET PO SCH (08:35)
[2019-06-03 09:27] VITALS: BP 107/72
[2019-06-04 08:07] LABS: 25-HYDROXY VITAMIN D3 30 ng/mL (.)
== END 2019-06-03 09:50 | disposition home health service (06) | DRG 91 ==
PROVIDERS: ADMIT Physical Medicine & Rehabilitation Spinal Cord Injury Medicine; ATTEND Family Medicine Adult Medicine
DX: G92 Toxic encephalopathy (principal); A02.1 Salmonella sepsis; G82.50 Quadriplegia, unspecified; E43 Unspecified severe protein-calorie malnutrition; N17.0 Acute kidney failure with tubular necrosis; J96.90 Respiratory failure, unspecified, unspecified whether with hypoxia or hypercapnia; K72.00 Acute and subacute hepatic failure without coma; J85.1 Abscess of lung with pneumonia; J96.00 Acute respiratory failure, unspecified whether with hypoxia or hypercapnia; R65.21 Severe sepsis with septic shock; G62.81 Critical illness polyneuropathy; R47.01 Aphasia; N39.0 Urinary tract infection, site not specified; E87.1 Hypo-osmolality and hyponatremia; D68.4 Acquired coagulation factor deficiency; R47.1 Dysarthria and anarthria; R13.10 Dysphagia, unspecified; D64.9 Anemia, unspecified; D69.6 Thrombocytopenia, unspecified; E55.9 Vitamin D deficiency, unspecified; M48.02 Spinal stenosis, cervical region; M48.061 Spinal stenosis, lumbar region without neurogenic claudication; M75.42 Impingement syndrome of left shoulder; D50.9 Iron deficiency anemia, unspecified; N18.9 Chronic kidney disease, unspecified; M75.00 Adhesive capsulitis of unspecified shoulder; E87.6 Hypokalemia; Z82.49 Family history of ischemic heart disease and other diseases of the circulatory system; Z83.3 Family history of diabetes mellitus; Z68.21 Body mass index [BMI] 21.0-21.9, adult
CPT/HCPCS: 36415; 71045; 73221; 80048; 80076; 82306; 82607; 82728; 82746; 83540; 83550; 83735; 83880; 84100; 84134; 84443; 84484; 92523; 92610; 93005; 93306; 93970; 94640; 97110; 97112; 97116; 97162; 97166; 97530; 97535; J3420; J7620